=== PATIENT | female | born 1980 | race African-American/Black ===

== ENCOUNTER 2016-10-22 11:36 | Emergency (ER) | payer OTHER ==
[~2016-10-22] VITALS: Ht 149.9 cm; Wt 48.0 kg
[2016-10-22 11:58] VITALS: BP 138/87; PULSE 100; RESP 15; O2SAT 99
[2016-10-22 12:19] LABS: AUTOMATED NEUTROPHIL # 3.4 TH/MM3 (1.8-7.7); BASOPHIL # 0.1 TH/MM3 (0-0.2); EOSINOPHIL % 0.3 % (0.0-4.0); HEMATOCRIT 39.9 % (35.0-46.0); HEMO FLAGS DIFF FINAL; LYMPH % 47.8 % (9.0-44.0); LYMPHOCYTE # 3.6 TH/MM3 (1.0-4.8); MEAN CELL VOLUME 87.9 FL (80.0-100.0); MEAN CORPUSCULAR HEMOGLOBIN 30.3 PG (27.0-34.0); MEAN CORPUSCULAR HGB CONC 34.5 % (32.0-36.0); MONO % 6.2 % (0.0-8.0); NEUT % 44.7 % (16.0-70.0); PLATELET COUNT 282 TH/MM3 (150-450); RED BLOOD COUNT 4.54 MIL/MM3 (4.00-5.30); RED CELL DISTRIBUTION WIDTH 13.7 % (11.6-17.2); WHITE BLOOD COUNT 7.6 TH/MM3 (4.0-11.0)
--- NOTE | 2016-10-22 12:19 | PD ---
HPI Chief Complaint: Neuro Symptoms/ Deficits Time Seen by Provider: 12:10 Travel History International Travel<30 days: No Contact w/Intl Traveler<30days: No Traveled to known affect area: No History of Present Illness HPI 36-year-old female with a chronic history of alcohol abuse to presents to the ED for evaluation of numbness and tingling and pain to her left shoulder and arm. Per patient she drink today. Per patient the symptoms started around 9: 00. Per patient she had severe pain of her shoulder and she has numbness in her left upper arm. Per patient she denies any injury. She does smell of alcohol right now. She states that she doesn't feel anything but she also has pain in her left shoulder. She denies any injuries like this before. Patient has been here multiple times for alcohol abuse. Per patient her pain is 7 out of 10. When I ask the patient to move her arm she would not move it for me. She states that the numbness is to the entire arm. She denies any leg numbness or deformity. No neck pain. No chest pain. No shortness of breath. No headache. No blurry vision or double vision. No trauma. No allergies to medication. Pain does not radiate. PFSH Past Medical History Asthma: Yes Blood Disorders: No Cancer: No Cardiovascular Problems: No Chemotherapy: No Diminished Hearing: No Endocrine: No Genitourinary: No Musculoskeletal: No Neurologic: No Psychiatric: No Reproductive: No Respiratory: No Immunizations Current: Yes ?: Not : 0 Past Surgical History Surgical History: No Previous Surgery Other Surgery: No Social History Alcohol Use: Yes (24 pack day hx; PT DENIES) Tobacco Use: Yes (1PPD) Substance Use: No Allergies-Medications (Allergen,Severity, Reaction): Coded Allergies: No Known Allergies (Unverified , 10/22/16) Reported Meds & Prescriptions Reported Meds & Active Scripts Active No Active Prescriptions or Reported Medications Review of Systems General / Constitutional: No: Fever, Chills, Weight Gain, Weight Loss, Other Eyes: No: Diploplia, Blurred Vision, Photophobia, Drainage, Redness, Foreign Body Sensation, Pain, Tearing, Blind Spots, Visual changes, Blindness, Other HENT: No: Headaches, Vertigo, Lightheadedness, Sore Throat, Rhinitis, Rhinorrhea, Congestion, Nosebleed, Neck Stiffness, Neck Pain, Masses, Gingival Bleeding, Dental Difficulties, Ear Discharge, Earache, Other Cardiovascular: No: Chest Pain or Discomfort, Palpitations, Irregular Rhythm, Tachycardia, Diaphoresis, Syncope, Dyspnea on exertion, Varicosities, Edema, Cyanosis, Varicosities, Phlebitis, Claudication, Other Respiratory: No: Cough, Shortness of Breath, Wheezing, Sneezing, Orthopnea, Hemoptysis, Stridor, Night Sweats, Pleuritic Pain, Other Gastrointestinal: No: Nausea, Vomiting, Diarrhea, Abdominal Pain, Hematemesis, Hematochezia, Constipation, Changes in Bowel Habits, Indigestion, Dysphagia, Loss of Appetite, Other Genitourinary: No: Urgency, Frequency, Dysuria, Nocturia, Hematuria, Decreased Urinary Output, Oliguria, Hesitancy, Dribbling, Incontinence, Pelvic Pain, Flank Pain, Dyspareunia, Discharge, Dysmenorrhea, Menorrhagia, Metorrhagia, Vaginal Bleeding, Other Musculoskeletal: Positive: Limited ROM, Pain, No: Myalgias, Arthralgias, Weakness, Cramping, Edema, Atrophy, Other Skin: No Rash, No Itching, No Dryness, No Lumps, No Hives, No Change in Pigmentation, No Change in nails, No Alopecia, No Lesions, No Breast Lumps, No Breast Tenderness, No Breast Swelling, No Other Neurologic: Positive: Weakness, Paresthesia, No: Dizziness, Syncope, Focal Abnormalities, Coordination Problem, Tremor, Ataxia, Headache, Change in Mentation, Slurred Speech, Incontinence, Seizures, Sensory Disturbance, Other Psychiatric: Positive: Substance Abuse, No: Anxiety, Depression, Suicidal Ideations, Disorder of Thought, Mood Disorder, Homicidal Ideation, Other Endocrine: No: Heat Intolerance, Cold Intolerance, Polyuria, Polydipsia, Other Hematologic/Lymphatic: No: Easy Bruising, Lymph Node Enlargement, Other Physical Exam Narrative GENERAL: SKIN: Warm and dry. HEAD: Atraumatic. Normocephalic. EYES: Pupils equal and round 4 mm reactive to light and accommodation. No scleral icterus. No injection or drainage. ENT: No nasal bleeding or discharge. Mucous membranes pink and moist. Tongue is midline. No uvula deviation. NECK: Trachea midline. No JVD. CARDIOVASCULAR: Regular rate and rhythm. No murmurs, S3, S4. RESPIRATORY: No accessory muscle use. Clear to auscultation. Breath sounds equal bilaterally. GASTROINTESTINAL: Abdomen soft, non-tender, nondistended. Hepatic and splenic margins not palpable. MUSCULOSKELETAL: Extremities without clubbing, cyanosis, or edema. No obvious deformities. Full range of motion of all extremities with exception of the left upper extremity which she will not move at all. Patient cannot even make a fist. She would not move her fingers. She does have good capillary refills and 2+ pulses in the left and all extremities. No obvious lumbar, thoracic, cervical spine tenderness to palpation. Patient appears to have no sensation even to pain. NEUROLOGICAL: Awake and alert. No obvious cranial nerve deficits. Motor grossly within normal limits. Five out of 5 muscle strength in the arms and legs. Normal speech. PSYCHIATRIC: Appropriate mood and affect; insight and judgment normal. Data Data Last Documented VS Vital Signs Date Time Temp Pulse Resp B/P Pulse Ox O2 Delivery O2 Flow Rate FiO2 10/22/16 18:00 87 16 119/81 99 Room Air Orders Electrocardiogram (10/22/16 11:56) Complete Blood Count With Diff (10/22/16 11:56) Basic Metabolic Panel (Bmp) (10/22/16 11:56) Prothrombin Time / Inr (Pt) (10/22/16 11:56) Act Partial Throm Time (Ptt) (10/22/16 11:56) Urinalysis - C+S If Indicated (10/22/16 11:56) Magnesium (Mg) (10/22/16 11:56) Thyroid Stimulating Hormone (10/22/16 11:56) Ct Brain W/O Iv Contrast(Rout) (10/22/16 11:56) Iv Access Insert/Monitor (10/22/16 11:56) Ecg Monitoring (10/22/16 11:56) Oximetry (10/22/16 11:56) Drug Screen, Random Urine (10/22/16 11:56) Alcohol (Ethanol) (10/22/16 11:56) Ct Cerv Spine W/O Contrast (10/22/16 ) Shoulder, Complete (>2vws) (10/22/16 ) Ed Urine Pregnancytest Poc (10/22/16 11:56) Sodium Chlor 0.9% 1000 Ml Inj (Ns 1000 M (10/22/16 13:19) Thiamine Inj (Thiamine Inj) (10/22/16 13:30) Mri Brain W/O Contrast (10/22/16 ) Labs Laboratory Tests Test 10/22/16 10/22/16 12:00 12:52 White Blood Count 7.6 TH/MM3 Red Blood Count 4.54 MIL/MM3 Hemoglobin 13.8 GM/DL Hematocrit 39.9 % Mean Corpuscular Volume 87.9 FL Mean Corpuscular Hemoglobin 30.3 PG Mean Corpuscular Hemoglobin 34.5 % Concent Red Cell Distribution Width 13.7 % Platelet Count 282 TH/MM3 Mean Platelet Volume 10.4 FL Neutrophils (%) (Auto) 44.7 % Lymphocytes (%) (Auto) 47.8 % Monocytes (%) (Auto) 6.2 % Eosinophils (%) (Auto) 0.3 % Basophils (%) (Auto) 1.0 % Neutrophils # (Auto) 3.4 TH/MM3 Lymphocytes # (Auto) 3.6 TH/MM3 Monocytes # (Auto) 0.5 TH/MM3 Eosinophils # (Auto) 0.0 TH/MM3 Basophils # (Auto) 0.1 TH/MM3 CBC Comment DIFF FINAL Differential Comment Urine Color LIGHT-YELLOW Urine Turbidity CLEAR Urine pH 5.0 Urine Specific [place] 1.004 Urine Protein NEG mg/dL Urine Glucose (UA) NEG mg/dL Urine Ketones NEG mg/dL Urine Occult Blood NEG Urine Nitrite NEG Urine Bilirubin NEG Urine Urobilinogen LESS THAN 2.0 MG/DL Urine Leukocyte Esterase NEG Urine WBC LESS THAN 1 /hpf Urine Squamous Epithelial 1 /hpf Cells Urine Bacteria RARE /hpf Microscopic Urinalysis Comment CULT NOT INDICATED Sodium Level 143 MEQ/L Potassium Level 4.8 MEQ/L Chloride Level 110 MEQ/L Carbon Dioxide Level 22.0 MEQ/L Anion Gap 11 MEQ/L Blood Urea Nitrogen 10 MG/DL Creatinine 0.98 MG/DL Estimat Glomerular Filtration 77 ML/MIN Rate Random Glucose 73 MG/DL Calcium Level 9.7 MG/DL Magnesium Level 3.0 MG/DL Thyroid Stimulating Hormone 0.805 uIU/ML 3rd Gen Urine Opiates Screen NEG Urine Barbiturates Screen NEG Urine Amphetamines Screen NEG Urine Benzodiazepines Screen NEG Urine Cocaine Screen POS Urine Cannabinoids Screen NEG Ethyl Alcohol Level 296 MG/DL Prothrombin Time 10.8 SEC Prothromb Time International 1.0 RATIO Ratio Activated Partial 25.0 SEC Thromboplast Time MDM Medical Decision Making Medical Screen Exam Complete: Yes Emergency Medical Condition: Yes Medical Record Reviewed: Yes Interpretation(s) CBC & BMP Diagram 10/22/16 12:00 TSH within normal limits. Coags within normal limits UA negative. Tox screen positive for alcohol in the [address] 10/22/16 1156 Signed Impressions: Service Date/Time: Saturday, October 22, 2016 12:48 - CONCLUSION: No acute intracranial abnormality. Apolinar Almazan MD Shoulder X-Ray 10/22/16 0000 Signed Impressions: Service Date/Time: Saturday, October 22, 2016 12:39 - CONCLUSION: Intact left shoulder. Apolinar Almazan MD Cervical Spine CT 10/22/16 0000 Signed Impressions: Service Date/Time: Saturday, October 22, 2016 12:48 - CONCLUSION: 1. No fracture, subluxation or perceptible disc protrusion of the cervical spine. 2. Very mild uncovertebral osteoarthritis at C4/C5 and C5/C6. 3. There is no foraminal or spinal stenosis demonstrated at any level. Apolinar Almazan MD MRI was negative. Differential Diagnosis CVA versus neuropathy versus radiculopathy versus alcohol abuse versus fall versus fracture versus dislocation versus conversion disorder Narrative Course 36-year-old female that presents to the ED for evaluation of left arm numbness and pain. Patient was properly examined and was found to have signs and symptoms of unclear etiology. My attending Dr. Beavers evaluated the patient with me and evaluated her at this time with no sign any obvious deformity. Patient will not move the arm to us and would not even neck assessed so we cannot assess her strength. My attending perform a full evaluation and her as well as me and she does appear to have resistance and symptoms to be aware of her arm. Unclear this is a true [id number] this is related to her alcohol abuse versus conversion disorder. Labs and imaging were ordered. Labs and imaging were essentially unremarkable other than for alcohol in the 296. At this time patient will be allowed to sleep of her intoxication and she will be reassessed once she is more sober to better assess for the neuropathy. At this time this does not appear to be a CVA. Patient was reassessed and still states that she cannot move the arm. I did try to move her myself and again and she will not move it for me but does appear to have some muscular movements in which she seems to be able to have some control over it. Case was discussed with Dr. Live for neurology who recommends just doing MRI. If MRI is negative patient can go home. This was discussed in my attending who agrees with this. MRI was ordered. MRI was negative. At this time I do not believe the patient has any sign of CVA. This appears to be conversion disorder. She could have some radiculopathy from sleeping wrong on it but I do not believe that this is true neurological deficit. She has been asking for food and drink every time anybody goes into the room. Case was discussed extensively with my attending Dr. Landers who agrees with discharge. Patient was told to follow up with PCP. See ED for worsening symptoms. Tylenol Motrin as needed. Close follow-up with neurologist if this continues to be a problem. Patient was given a sling. Diagnosis Primary Impression: Chronic alcoholic intoxication Qualified Code: F10.120 - Chronic alcoholic intoxication, uncomplicated Additional Impression: Radiculopathy of arm Patient Instructions: General Instructions Additional Instructions: Follow with PCP. See ED worsening symptoms. Please discontinue drinking. Motrin or Tylenol for pain. Med/Other Pt SpecificInfo: Prescription(s) given Scripts No Active Prescriptions or Reported Meds Disposition: 01 DISCHARGE HOME Condition: Gerardo Scott Oct 22, 2016 12:19
[2016-10-22 12:32] LABS: POTASSIUM 4.8 MEQ/L (3.5-5.1)
[2016-10-22 13:01] LABS: AMPHETAMINE, URINE NEG (NEG); BARBITURATES, URINE NEG (NEG); COCAINE, URINE POS (NEG)
[2016-10-22 13:07] LABS: BACTERIA, URINE RARE /hpf; BLOOD, URINE NEG (NEG); COMMENT (UR) CULT NOT INDICATED; CULTURE IF INDICATED CULT NOT INDICATED; GLUCOSE,URINE NEG (NEG); KETONE, URINE NEG (NEG); NITRITE,URINE NEG (NEG); SQUAMOUS EPITHELIAL CELL URINE 1 /hpf (0-5); URINE COLOR LIGHT-YELLOW (YELLW/STRAW)
--- NOTE | 2016-10-22 13:08 | RADRPT ---
EXAM DATE/TIME: 10/22/2016 12:39 [facility] COMPARISON: No previous studies available for comparison. INDICATIONS : Left shoulder pain, fall. MEDICAL HISTORY : None. SURGICAL HISTORY : None. ENCOUNTER: Initial ACUITY: 1 day PAIN SCORE: 10/10 LOCATION: Left proximal shoulder FINDINGS: Multiple view examination of the left shoulder demonstrates no evidence of fracture or dislocation. The glenohumeral and acromioclavicular joints are maintained. There is normal range of motion betwee n internal and external rotation. Bony mineralization is normal. CONCLUSION: Intact left shoulder. Apolinar Almazan MD on October 22, 2016 at 13:06 Board Certified Radiologist. This report was verified electronically.
--- NOTE | 2016-10-22 13:12 | RADRPT ---
EXAM DATE/TIME: 10/22/2016 12:48 [facility] COMPARISON: No previous studies available for comparison. INDICATIONS : Numbness and tingling to left arm. RADIATION DOSE: 29.68 CTDIvol (mGy) MEDICAL HISTORY : None SURGICAL HISTORY : None. ENCOUNTER: Initial ACUITY: 1 day PAIN SCALE: 0/10 LOCATION: cranial TECHNIQUE: Multiple contiguous axial images were obtained of the head. Using automated exposure control and adj ustment of the mA and/or kV according to patient size, radiation dose was kept as low as reasonably a chievable to obtain optimal diagnostic quality images. FINDINGS: CEREBRUM: The ventricles are normal for age. No evidence of midline shift, mass lesion, hemorrhage or acute in farction. No extra-axial fluid collections are seen. POSTERIOR FOSSA: The cerebellum and brainstem are intact. The 4th ventricle is midline. The cerebellopontine angle i s unremarkable. EXTRACRANIAL: There is mucoperiosteal thickening causing near complete opacification of the left maxillary sinus. SKULL: The calvaria is intact. No evidence of skull fracture. CONCLUSION: No acute intracranial abnormality. Apolinar Almazan MD on October 22, 2016 at 13:10 Board Certified Radiologist. This report was verified electronically.
--- NOTE | 2016-10-22 13:15 | RADRPT ---
EXAM DATE/TIME: 10/22/2016 12:48 [facility] COMPARISON: No previous studies available for comparison. INDICATIONS : Radiculopathy. RADIATION DOSE: 12.69 CTDIvol (mGy) MEDICAL HISTORY : None SURGICAL HISTORY : None. ENCOUNTER: Initial ACUITY: 1 day PAIN SCALE: 4/10 LOCATION: Left neck TECHNIQUE: Volumetric scanning of the cervical spine was performed. Multiplanar reconstructions in the sagittal, coronal and oblique axial planes were performed. Using automated exposure control and adjustment o f the mA and/or kV according to patient size, radiation dose was kept as low as reasonably achievable to obtain optimal diagnostic quality images. FINDINGS: VERTEBRAE: Normal vertebral body height. ALIGNMENT: No evidence of subluxation. C2-C3: The bony spinal canal is normal in size. No evidence of disc bulge or herniation. The neural forami na are bilaterally patent. C3-C4: The bony spinal canal is normal in size. No evidence of disc bulge or herniation. The neural forami na are bilaterally patent. C4-C5: The bony spinal canal is normal in size. No evidence of disc bulge or herniation. Minimal uncoverteb ral degenerative changes, mainly on the left. The neural foramina are bilaterally patent. C5-C6: The bony spinal canal is normal in size. No evidence of disc bulge or herniation. Minimal uncoverteb ral degenerative changes, mainly on the left. The neural foramina are bilaterally patent. C6-C7: The bony spinal canal is normal in size. No evidence of disc bulge or herniation. The neural forami na are bilaterally patent. C7-T1: The bony spinal canal is normal in size. No evidence of disc bulge or herniation. The neural forami na are bilaterally patent. CONCLUSION: 1. No fracture, subluxation or perceptible disc protrusion of the cervical spine. 2. Very mild uncovertebral osteoarthritis at C4/C5 and C5/C6. 3. There is no foraminal or spinal stenosis demonstrated at any level. Apolinar Almazan MD on October 22, 2016 at 13:12 Board Certified Radiologist. This report was verified electronically.
[2016-10-22] MEDS ORDERED: SODIUM CHLOR 0.9% 1000 ML INJ 1,000 ML IV SCH (13:19)
--- NOTE | 2016-10-22 13:24 | EKG ---
Date Performed: 10/22/2016 Time Performed: 12:08:21 PTAGE: 36 years EKG: Sinus rhythm POSSIBLE LEFT ATRIAL ENLARGEMENT BORDERLINE LEFT AXIS DEVIATION POSSIBLE RIGHT VENTRICULAR CONDUCTIO N DELAY BORDERLINE ECG PREVIOUS TRACING : 10/13/2014 19.45 No significant change from previous tracing noted. DOCTOR: Harpal Arechiga Interpretating Date/Time 10/22/2016 13:23:16
[2016-10-22] MEDS ORDERED: THIAMINE INJ 100 MG in SODIUM CHLORIDE 0.9% INJ 100 ML IV ONE (13:30)
[2016-10-22 13:34] LABS: PROTHROMBIN TIME - PATIENT 10.8 SEC (9.8-11.6)
[2016-10-22 14:44] VITALS: BP 113/69; PULSE 70; RESP 16; O2SAT 100
[2016-10-22 15:58] VITALS: BP 110/67; PULSE 88; RESP 17; O2SAT 100
--- NOTE | 2016-10-22 17:01 | PD ---
Physical Exam Narrative I, Dr. Landers, have reviewed the advance practice practitioner's documentation and am in agreement, met with the patient face to face, made the diagnosis, and the medical decision making was done by me. *My assessment and Findings: Patient is a 36 year old female who comes in complaining of numbness to her left arm and she says he is unable to move it. She says this started around 9 this morning when she was drinking in the park with her sister this morning. Patient says she has no sensation to that arm. On exam, she refuses to move her arm, but muscle resistance can be felt when passively moving her arm. In addition, when lifting her arm above her head, she does not let it fall to her face, instead moves it above her head. When told of this finding, she then started to drop her hand on her face. Data Data Last Documented VS Vital Signs Date Time Temp Pulse Resp B/P Pulse Ox O2 Delivery O2 Flow Rate FiO2 10/22/16 18:00 87 16 119/81 99 Room Air Orders Electrocardiogram (10/22/16 11:56) Complete Blood Count With Diff (10/22/16 11:56) Basic Metabolic Panel (Bmp) (10/22/16 11:56) Prothrombin Time / Inr (Pt) (10/22/16 11:56) Act Partial Throm Time (Ptt) (10/22/16 11:56) Urinalysis - C+S If Indicated (10/22/16 11:56) Magnesium (Mg) (10/22/16 11:56) Thyroid Stimulating Hormone (10/22/16 11:56) Ct Brain W/O Iv Contrast(Rout) (10/22/16 11:56) Iv Access Insert/Monitor (10/22/16 11:56) Ecg Monitoring (10/22/16 11:56) Oximetry (10/22/16 11:56) Drug Screen, Random Urine (10/22/16 11:56) Alcohol (Ethanol) (10/22/16 11:56) Ct Cerv Spine W/O Contrast (10/22/16 ) Shoulder, Complete (>2vws) (10/22/16 ) Ed Urine Pregnancytest Poc (10/22/16 11:56) Sodium Chlor 0.9% 1000 Ml Inj (Ns 1000 M (10/22/16 13:19) Thiamine Inj (Thiamine Inj) (10/22/16 13:30) Mri Brain W/O Contrast (10/22/16 ) Splint Or Brace Apply/Monitor (10/22/16 19:06) Sling Cradle Arm (10/22/16 ) Labs Laboratory Tests Test 10/22/16 10/22/16 12:00 12:52 White Blood Count 7.6 TH/MM3 Red Blood Count 4.54 MIL/MM3 Hemoglobin 13.8 GM/DL Hematocrit 39.9 % Mean Corpuscular Volume 87.9 FL Mean Corpuscular Hemoglobin 30.3 PG Mean Corpuscular Hemoglobin 34.5 % Concent Red Cell Distribution Width 13.7 % Platelet Count 282 TH/MM3 Mean Platelet Volume 10.4 FL Neutrophils (%) (Auto) 44.7 % Lymphocytes (%) (Auto) 47.8 % Monocytes (%) (Auto) 6.2 % Eosinophils (%) (Auto) 0.3 % Basophils (%) (Auto) 1.0 % Neutrophils # (Auto) 3.4 TH/MM3 Lymphocytes # (Auto) 3.6 TH/MM3 Monocytes # (Auto) 0.5 TH/MM3 Eosinophils # (Auto) 0.0 TH/MM3 Basophils # (Auto) 0.1 TH/MM3 CBC Comment DIFF FINAL Differential Comment Urine Color LIGHT-YELLOW Urine Turbidity CLEAR Urine pH 5.0 Urine Specific [place] 1.004 Urine Protein NEG mg/dL Urine Glucose (UA) NEG mg/dL Urine Ketones NEG mg/dL Urine Occult Blood NEG Urine Nitrite NEG Urine Bilirubin NEG Urine Urobilinogen LESS THAN 2.0 MG/DL Urine Leukocyte Esterase NEG Urine WBC LESS THAN 1 /hpf Urine Squamous Epithelial 1 /hpf Cells Urine Bacteria RARE /hpf Microscopic Urinalysis Comment CULT NOT INDICATED Sodium Level 143 MEQ/L Potassium Level 4.8 MEQ/L Chloride Level 110 MEQ/L Carbon Dioxide Level 22.0 MEQ/L Anion Gap 11 MEQ/L Blood Urea Nitrogen 10 MG/DL Creatinine 0.98 MG/DL Estimat Glomerular Filtration 77 ML/MIN Rate Random Glucose 73 MG/DL Calcium Level 9.7 MG/DL Magnesium Level 3.0 MG/DL Thyroid Stimulating Hormone 0.805 uIU/ML 3rd Gen Urine Opiates Screen NEG Urine Barbiturates Screen NEG Urine Amphetamines Screen NEG Urine Benzodiazepines Screen NEG Urine Cocaine Screen POS Urine Cannabinoids Screen NEG Ethyl Alcohol Level 296 MG/DL Prothrombin Time 10.8 SEC Prothromb Time International 1.0 RATIO Ratio Activated Partial 25.0 SEC Thromboplast Time MDM Supervised Visit with PHAN: Yes Narrative Course Patient found to have an alcohol level of 296. CT head is negative. Patient allowed to sober up. She continues to complain of the numbness and being unable to move her arm. Spoke to Dr. Melvin of neurology who advises MRI and discharge if normal. MRI showed no acute abnormalities. Patient observed to be using her arm normally. Discharged home. Diagnosis Primary Impression: Chronic alcoholic intoxication Qualified Code: F10.120 - Chronic alcoholic intoxication, uncomplicated Scripts No Active Prescriptions or Reported Meds Rabia Landers MD Oct 22, 2016 17:01
[2016-10-22 18:00] VITALS: BP 119/81; PULSE 87; RESP 16; O2SAT 99
--- NOTE | 2016-10-22 18:47 | RADRPT ---
EXAM DATE/TIME: 10/22/2016 18:16 [facility] COMPARISON: No previous studies available for comparison. INDICATIONS : Left upper extremity numbness. MEDICAL HISTORY : Polysubstance abuse. SURGICAL HISTORY : None. ENCOUNTER: Initial ACUITY: 1 day PAIN SCORE: 0/10 LOCATION: cranial TECHNIQUE: Multiplanar, multisequence MRI of the brain was performed without contrast. FINDINGS: CEREBRUM: The ventricles are normal for age. No evidence of midline shift, mass lesion, hemorrhage or acute in farction. No extraaxial fluid collections are seen. The pituitary gland and suprasellar cistern are normal in configuration. WHITE MATTER: No significant signal abnormalities are seen in the white matter. POSTERIOR FOSSA: The cerebellum and brainstem are intact. The 4th ventricle is midline. The cerebellopontine angle is unremarkable. The cerebellar tonsils are normal in position. DIFFUSION IMAGING: No focal areas of restricted diffusion are seen. No evidence of acute infarction. EXTRACRANIAL: The visualized portions of the orbits are unremarkable. Partial opacification left maxillary sinus. CONCLUSION: 1. No acute intracranial abnormality. 2. Left maxillary sinus disease. Quoc Bassett MD on October 22, 2016 at 18:44 Board Certified Radiologist. This report was verified electronically.
== END 2016-10-22 19:30 | disposition home or self-care (01) ==
LOC: NEPE 11:36
DX: F10.120 Alcohol abuse with intoxication, uncomplicated (principal); R20.0 Anesthesia of skin; R20.2 Paresthesia of skin; J45.909 Unspecified asthma, uncomplicated; F17.210 Nicotine dependence, cigarettes, uncomplicated; R94.31 Abnormal electrocardiogram [ECG] [EKG]
CPT/HCPCS: 70450; 70551; 72125; 73030; 80048; 80307; 80320; 81001; 83735; 84443; 84703; 85025; 85610; 85730; 93005; 96365; 99284; J3411; J7030

== ENCOUNTER 2016-10-31 07:46 | Emergency (ER) | payer OTHER ==
[2016-10-31 07:47] VITALS: BP 112/79; PULSE 97; RESP 20; TEMP 98.1; O2SAT 99
[2016-10-31 10:16] VITALS: BP 131/94; PULSE 91; RESP 16; O2SAT 99
[2016-10-31 10:58] VITALS: O2SAT 100
--- NOTE | 2016-10-31 10:59 | PD ---
HPI Chief Complaint: Respiratory Symptoms Time Seen by Provider: 10:51 Travel History International Travel<30 days: No Contact w/Intl Traveler<30days: No Traveled to known affect area: No History of Present Illness HPI 36yo F with PMH of asthma, chronic alcohol abuse presents to the ED with c/o sob since yesterday. States she was wheezing, but ran out of her pump. Had chest tightness that is midsternal as well. Denies any fever, cough, cocaine or drug use, n/v, abdominal pain, focal weakness or numbness. Denies any fall. PFSH Past Medical History Asthma: Yes Blood Disorders: No Cancer: No Cardiovascular Problems: No Chemotherapy: No Diminished Hearing: No Endocrine: No Genitourinary: No Musculoskeletal: No Neurologic: No Psychiatric: No Reproductive: No Respiratory: No Immunizations Current: Yes Tetanus Vaccination: < 5 Years Influenza Vaccination: No ?: Not : 0 Past Surgical History Surgical History: No Previous Surgery Other Surgery: No Social History Alcohol Use: Yes (24 pack day hx; PT STATES SHE DRANK BEER THIS MORNING) Tobacco Use: Yes (1/2PPD) Substance Use: No Allergies-Medications (Allergen,Severity, Reaction): Coded Allergies: No Known Allergies (Unverified , 10/22/16) Reported Meds & Prescriptions Reported Meds & Active Scripts Active Ventolin Hfa 18 GM Inh (Albuterol Sulfate) 90 Mcg/Act Aer 2 Puff INH Q4H PRN Prednisone 20 Mg Tab 20 Mg PO BID 5 Days Review of Systems Except as stated in HPI: all other systems reviewed are Neg Physical Exam Narrative GENERAL: 36yo F not in distress. SKIN: Warm and dry. HEAD: Atraumatic. Normocephalic. NECK: Trachea midline. No JVD. CARDIOVASCULAR: Regular rate and rhythm. No murmur appreciated. RESPIRATORY: No accessory muscle use. Clear to auscultation. Breath sounds equal bilaterally. GASTROINTESTINAL: Abdomen soft, non-tender, nondistended. MUSCULOSKELETAL: No obvious deformities. No clubbing. No cyanosis. No edema. NEUROLOGICAL: Awake and alert. No obvious cranial nerve deficits. Motor grossly within normal limits. Normal speech. PSYCHIATRIC: Appropriate mood and affect; insight and judgment normal. Data Data Last Documented VS Vital Signs Date Time Temp Pulse Resp B/P Pulse Ox O2 Delivery O2 Flow Rate FiO2 10/31/16 16:36 82 16 116/80 97 10/31/16 10:58 Room Air 10/31/16 07:47 98.1 Orders Electrocardiogram (10/31/16 ) Complete Blood Count With Diff (10/31/16 10:55) Basic Metabolic Panel (Bmp) (10/31/16 10:55) Act Partial Throm Time (Ptt) (10/31/16 10:55) Prothrombin Time / Inr (Pt) (10/31/16 10:55) Ckmb (Isoenzyme) Profile (10/31/16 10:55) Troponin I (10/31/16 10:55) Ecg Monitoring (10/31/16 10:55) Oximetry (10/31/16 10:55) Chest, Single Ap (10/31/16 10:55) Albuterol-Ipratropium Neb (Duoneb Neb) (10/31/16 11:00) Prednisone (Deltasone) (10/31/16 11:00) CKMB (10/31/16 11:02) CKMB% (10/31/16 11:02) Labs Laboratory Tests Test 10/31/16 11:02 White Blood Count 7.5 TH/MM3 Red Blood Count 4.52 MIL/MM3 Hemoglobin 13.4 GM/DL Hematocrit 39.6 % Mean Corpuscular Volume 87.6 FL Mean Corpuscular Hemoglobin 29.7 PG Mean Corpuscular Hemoglobin 33.9 % Concent Red Cell Distribution Width 13.7 % Platelet Count 227 TH/MM3 Mean Platelet Volume 10.3 FL Neutrophils (%) (Auto) 47.4 % Lymphocytes (%) (Auto) 46.1 % Monocytes (%) (Auto) 5.6 % Eosinophils (%) (Auto) 0.6 % Basophils (%) (Auto) 0.3 % Neutrophils # (Auto) 3.6 TH/MM3 Lymphocytes # (Auto) 3.5 TH/MM3 Monocytes # (Auto) 0.4 TH/MM3 Eosinophils # (Auto) 0.0 TH/MM3 Basophils # (Auto) 0.0 TH/MM3 CBC Comment DIFF FINAL Differential Comment Prothrombin Time 10.7 SEC Prothromb Time International 1.0 RATIO Ratio Activated Partial 26.6 SEC Thromboplast Time Sodium Level 145 MEQ/L Potassium Level 4.1 MEQ/L Chloride Level 111 MEQ/L Carbon Dioxide Level 26.5 MEQ/L Anion Gap 8 MEQ/L Blood Urea Nitrogen 9 MG/DL Creatinine 0.94 MG/DL Estimat Glomerular Filtration 81 ML/MIN Rate Random Glucose 92 MG/DL Calcium Level 8.6 MG/DL Total Creatine Kinase 755 U/L Creatine Kinase MB 1.1 NG/ML Creatine Kinase MB % 0.1 % Troponin I LESS THAN 0.02 NG/ML MDM Medical Decision Making Medical Screen Exam Complete: Yes Emergency Medical Condition: Yes Interpretation(s) EKG: NSR 89bpm. LAD. No ST segment elevation or depression. Differential Diagnosis Asthma exacerbation vs. pneumonia vs. malingering Narrative Course 36yo F with chronic alcohol abuse and asthma states she is sob and out of her asthma medication. Pt is not wheezing but states she has sob so will give duonebs x 3 and prednisone 60mg PO. Pt is speaking in complete sentences and has been sleeping comfortable in the ED. Labs reviewed, no leukocytosis. Troponin negative. CPK elevated at 755. Pt tolerating PO. Normal creatinine. CXR negative. VS normal. Pt reevaluated at bedside and states she feels better. Pt is well appearing and has been comfortable. Although pt may not be wheezing, she states she has history of asthma so will prescribe prednisone and ventolin. Return precautions given. Diagnosis Primary Impression: Asthma exacerbation Patient Instructions: General Instructions Departure Forms: Tests/Procedures Additional Instructions: Please follow up with PMD in 3-7 days. Return to the ED if symptoms worsen. Med/Other Pt SpecificInfo: Prescription(s) given Scripts Albuterol 18 GM Inh (Ventolin Hfa 18 GM Inh)90 Mcg/Act Aer2 Puff INH Q4H PRN ( SHORTNESS OF BREATH) #1 INHALER Ref 0 Prov:MarinaElsi 10/31/16 Prednisone 20 Mg Tab20 Mg PO BID 5 Days Ref 0 Prov:Elsi Gray DO 10/31/16 Disposition: 01 DISCHARGE HOME Condition: Stable Elsi Gray Oct 31, 2016 10:59
[2016-10-31] MEDS ORDERED: predniSONE 20 MG TAB PO ONE (11:00)
[2016-10-31 11:10] LABS: AUTOMATED NEUTROPHIL # 3.6 TH/MM3 (1.8-7.7); BASOPHIL % 0.3 % (0.0-2.0); EOSINOPHIL % 0.6 % (0.0-4.0); HEMATOCRIT 39.6 % (35.0-46.0); HEMO FLAGS DIFF FINAL; LYMPH % 46.1 % (9.0-44.0); LYMPHOCYTE # 3.5 TH/MM3 (1.0-4.8); MEAN CELL VOLUME 87.6 FL (80.0-100.0); MEAN CORPUSCULAR HEMOGLOBIN 29.7 PG (27.0-34.0); MEAN CORPUSCULAR HGB CONC 33.9 % (32.0-36.0); MONO % 5.6 % (0.0-8.0); NEUT % 47.4 % (16.0-70.0); PLATELET COUNT 227 TH/MM3 (150-450); RED BLOOD COUNT 4.52 MIL/MM3 (4.00-5.30); RED CELL DISTRIBUTION WIDTH 13.7 % (11.6-17.2); WHITE BLOOD COUNT 7.5 TH/MM3 (4.0-11.0)
[2016-10-31] MEDS: RESP: ALBUTEROL 2.5 MG/IPRATROPIUM 0.5 MG NEB (SCH) INH ×2 (11:11→11:12)
[2016-10-31 11:18] LABS: APTT (PATIENT) 26.6 SEC (24.3-30.1); PROTHROMBIN TIME - PATIENT 10.7 SEC (9.8-11.6)
[2016-10-31 11:26] LABS: ANION GAP 8 MEQ/L (5-15); BICARBONATE 26.5 MEQ/L (21.0-32.0); BLOOD UREA NITROGEN 9 MG/DL (7-18); CHLORIDE 111 MEQ/L (98-107); GLOMERULAR FILTRATION RATE 81 ML/MIN (>89); POTASSIUM 4.1 MEQ/L (3.5-5.1); SODIUM (NA) 145 MEQ/L (136-145)
[2016-10-31 11:30] VITALS: BP 127/74; PULSE 100; RESP 16; O2SAT 100
[2016-10-31 11:30] LABS: CREATINE KINASE 755 U/L (26-192)
--- NOTE | 2016-10-31 11:36 | RADRPT ---
EXAM DATE/TIME: 10/31/2016 11:01 [facility] COMPARISON: CHEST SINGLE AP, October 13, 2014, 0:58. INDICATIONS : Short of breath, chest pain. MEDICAL HISTORY : None. SURGICAL HISTORY : None. ENCOUNTER: Initial ACUITY: 1 day PAIN SCORE: 10/10 LOCATION: Bilateral chest FINDINGS: A single view of the chest demonstrates the lungs to be symmetrically aerated without evidence of mas s, infiltrate or effusion. The cardiomediastinal contours are unremarkable. Osseous structures are intact. CONCLUSION: No acute disease. Quoc Bassett MD on October 31, 2016 at 11:34 Board Certified Radiologist. This report was verified electronically.
[2016-10-31 11:43] LABS: CKMB 1.1 NG/ML (0.5-3.6)
[2016-10-31 13:05] VITALS: BP 123/76; PULSE 85; RESP 16; O2SAT 99
[2016-10-31] MEDS ORDERED: PRED20 PO (13:39)
[2016-10-31] MEDS ORDERED: VENTAER INH (13:39)
--- NOTE | 2016-10-31 15:17 | EKG ---
Date Performed: 10/31/2016 Time Performed: 10:22:09 PTAGE: 36 years EKG: Sinus rhythm LEFT AXIS DEVIATION ABNORMAL ECG PREVIOUS TRACING : 10/22/2016 12.08 No significant change from previous tracing noted. DOCTOR: Harpal Arechiga Interpretating Date/Time 10/31/2016 15:16:03
[2016-10-31 16:36] VITALS: BP 116/80
== END 2016-10-31 16:36 | disposition home or self-care (01) ==
LOC: NEPE 07:46
DX: J45.901 Unspecified asthma with (acute) exacerbation (principal); F10.10 Alcohol abuse, uncomplicated; F17.210 Nicotine dependence, cigarettes, uncomplicated; R94.31 Abnormal electrocardiogram [ECG] [EKG]
CPT/HCPCS: 71010; 80048; 82550; 82552; 84484; 85025; 85610; 85730; 93005; 94640; 94664; 99284; J7512

== ENCOUNTER 2016-12-17 10:27 | Emergency (ER) | payer OTHER ==
[~2016-12-17] VITALS: Ht 157.5 cm; Wt 50.0 kg
[~2016-12-17 10:27] MED LIST: PRED20 PO; VENTAER INH
[2016-12-17 10:33] VITALS: BP 139/86; PULSE 115; RESP 18; TEMP 98; O2SAT 96
[2016-12-17] MEDS ORDERED: SODIUM CHLOR 0.9% 1000 ML INJ 1,000 ML IV ONE (10:45)
[2016-12-17 10:59] LABS: AUTOMATED NEUTROPHIL # 2.5 TH/MM3 (1.8-7.7); BASOPHIL % 0.7 % (0.0-2.0); EOSINOPHIL % 0.5 % (0.0-4.0); HEMO FLAGS DIFF FINAL; LYMPH % 47.2 % (9.0-44.0); LYMPHOCYTE # 2.8 TH/MM3 (1.0-4.8); MEAN CORPUSCULAR HEMOGLOBIN 29.5 PG (27.0-34.0); MEAN CORPUSCULAR HGB CONC 34.3 % (32.0-36.0); MONO % 10.3 % (0.0-8.0); NEUT % 41.3 % (16.0-70.0); PLATELET COUNT 221 TH/MM3 (150-450); RED CELL DISTRIBUTION WIDTH 14.1 % (11.6-17.2)
[2016-12-17 11:40] LABS: ALT (GPT) 23 U/L (10-53); ANION GAP 10 MEQ/L (5-15); AST (GOT) 27 U/L (15-37); BICARBONATE 22.2 MEQ/L (21.0-32.0); BLOOD UREA NITROGEN 13 MG/DL (7-18); CHLORIDE 109 MEQ/L (98-107); GLOMERULAR FILTRATION RATE 73 ML/MIN (>89); POTASSIUM 3.8 MEQ/L (3.5-5.1); SODIUM (NA) 141 MEQ/L (136-145)
[2016-12-17 11:44] LABS: ALKALINE PHOSPHATASE 72 U/L (45-117); TOTAL BILIRUBIN ADULT 0.5 MG/DL (0.2-1.0)
[2016-12-17 12:00] VITALS: BP 109/56; PULSE 78; RESP 16; O2SAT 100
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
--- NOTE | 2016-12-17 15:19 | EKG ---
Date Performed: 12/17/2016 Time Performed: 10:47:04 PTAGE: 36 years EKG: SINUS TACHYCARDIA POSSIBLE RIGHT VENTRICULAR CONDUCTION DELAY LEFT ANTERIOR FASCICULAR BLOC K ABNORMAL ECG PREVIOUS TRACING : 10/31/2016 10.22 Since previous tracing, no significant change noted DOCTOR: Brandon Rick Interpretating Date/Time 12/17/2016 15:17:41
[2016-12-17 19:26] VITALS: BP 129/82; TEMP 98.2
== END 2016-12-17 19:40 | disposition home or self-care (01) ==
LOC: NEPE 10:27
DX: F10.120 Alcohol abuse with intoxication, uncomplicated (principal); R00.0 Tachycardia, unspecified; Y90.8 Blood alcohol level of 240 mg/100 ml or more
CPT/HCPCS: 80053; 80307; 85025; 93005; 96360; 99285; J7030

== ENCOUNTER 2017-01-06 04:18 | Emergency (ER) | payer OTHER ==
[~2017-01-06] VITALS: Ht 149.9 cm; Wt 39.0 kg
[2017-01-06 04:18] VITALS: BP 136/82; PULSE 106; RESP 16
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
[2017-01-06] MEDS ORDERED: ACETAMINOPHEN 325 MG TAB PO ONE (05:15)
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
[2017-01-06 06:40] VITALS: BP 135/77
== END 2017-01-06 06:35 | disposition home or self-care (01) ==
LOC: NEPE 04:18
DX: S09.90XA Unspecified injury of head, initial encounter (principal); S00.211A Abrasion of right eyelid and periocular area, initial encounter; S16.1XXA Strain of muscle, fascia and tendon at neck level, initial encounter; F17.210 Nicotine dependence, cigarettes, uncomplicated; W22.09XA Striking against other stationary object, initial encounter; Y93.02 Activity, running
CPT/HCPCS: 70450; 72125

== ENCOUNTER 2017-02-16 09:18 | Emergency (ER) | payer OTHER ==
[~2017-02-16] VITALS: Ht 160 cm; Wt 50.0 kg
[2017-02-16 09:31] VITALS: BP 103/74; PULSE 102; RESP 16; TEMP 98.3; O2SAT 96
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
== END 2017-02-16 09:53 | disposition home or self-care (01) ==
LOC: NEPD 09:18
DX: M79.674 Pain in right toe(s) (principal)
CPT/HCPCS: 99283

== ENCOUNTER 2017-04-11 07:19 | Emergency (ER) | payer OTHER ==
[~2017-04-11] VITALS: Ht 157.5 cm; Wt 46.0 kg
[2017-04-11 07:25] VITALS: BP 124/85; PULSE 97; RESP 12; TEMP 98.5; O2SAT 99
[2017-04-11] MEDS ORDERED: SODIUM CHLOR 0.9% 1000 ML INJ 1,000 ML IV ONE (07:45)
--- NOTE | 2017-04-11 09:06 | PD ---
HPI Chief Complaint: General Weakness Time Seen by Provider: 07:37 Travel History International Travel<30 days: No Contact w/Intl Traveler<30days: No Traveled to known affect area: No History of Present Illness HPI This is a 36-year-old female with a history of alcohol abuse, presents today with complaints of generalized weakness. The patient states that she was walking from her mother's house when she became very weak. Apparently she was outside the hospital and was noted by nurses to be stumbling. She apparently was helped down to the ground and [facility] was called. She denies any pain. She states that she's tired and weak. She does report that she drank too beers last night. There are no other complaints time my examination. PFSH Past Medical History Asthma: Yes Blood Disorders: No Cancer: No Cardiovascular Problems: No Chemotherapy: No Diminished Hearing: No Endocrine: No Genitourinary: No Musculoskeletal: No Neurologic: No Psychiatric: No Reproductive: No Respiratory: No Immunizations Current: Yes ?: Unknown : 0 Past Surgical History Other Surgery: No Social History Alcohol Use: Yes (24 pack day hx) Tobacco Use: Yes (1/2PPD) Substance Use: No Allergies-Medications (Allergen,Severity, Reaction): Coded Allergies: No Known Allergies (Unverified , 04/11/17) Reported Meds & Prescriptions Reported Meds & Active Scripts Active Review of Systems Except as stated in HPI: all other systems reviewed are Neg General / Constitutional: No: Fever, Chills HENT: No: Headaches, Lightheadedness, Neck Stiffness Cardiovascular: No: Chest Pain or Discomfort, Palpitations Respiratory: No: Cough, Shortness of Breath Gastrointestinal: No: Nausea, Vomiting, Abdominal Pain Genitourinary: No: Frequency, Dysuria Musculoskeletal: Positive: Weakness (generalized), No: Pain Neurologic: Positive: Weakness (and realized), No: Dizziness, Headache, Change in Mentation, Slurred Speech Physical Exam Narrative GENERAL: Thin weak appearing female in no acute respiratory distress. SKIN: Focused skin assessment warm/dry. HEAD: Normocephalic/atraumatic. EYES: No scleral icterus. No injection or drainage. NECK: Supple, trachea midline. CARDIOVASCULAR: Heart rate 100 and normal rhythm without murmurs, gallops, or rubs. RESPIRATORY: Breath sounds equal bilaterally. No accessory muscle use. GASTROINTESTINAL: Abdomen soft, non-tender, nondistended. MUSCULOSKELETAL: No cyanosis, or edema. NEUROLOGICAL: Awake and weak appearing. Cranial nerves II through XII intact. Motor and sensory grossly within normal limits. Five out of 5 muscle strength in all muscle groups. Normal speech. Data Data Last Documented VS Vital Signs Date Time Temp Pulse Resp B/P Pulse Ox O2 Delivery O2 Flow Rate FiO2 04/11/17 07:25 98.5 97 12 124/85 99 Orders Electrocardiogram (04/11/17 07:38) Complete Blood Count With Diff (04/11/17 07:38) Comprehensive Metabolic Panel (04/11/17 07:38) Lipase (04/11/17 07:38) Urinalysis - C+S If Indicated (04/11/17 07:38) Magnesium (Mg) (04/11/17 07:38) Chest, Single Ap (04/11/17 07:38) Iv Access Insert/Monitor (04/11/17 07:38) Ecg Monitoring (04/11/17 07:38) Oximetry (04/11/17 07:38) Ed Urine Pregnancytest Poc (04/11/17 07:38) Drug Screen, Random Urine (04/11/17 07:38) Alcohol (Ethanol) (04/11/17 07:38) Sodium Chlor 0.9% 1000 Ml Inj (Ns 1000 M (04/11/17 07:45) Ketorolac Inj (Toradol Inj) (04/11/17 09:30) Diet Regular Basic (04/11/17 Breakfast) Labs Laboratory Tests Test 04/11/17 04/11/17 08:13 08:35 Urine Color LIGHT-YELLOW Urine Turbidity CLEAR Urine pH 5.5 Urine Specific [place] 1.009 Urine Protein TRACE mg/dL Urine Glucose (UA) NEG mg/dL Urine Ketones NEG mg/dL Urine Occult Blood NEG Urine Nitrite NEG Urine Bilirubin NEG Urine Urobilinogen LESS THAN 2.0 MG/DL Urine Leukocyte Esterase NEG Urine WBC LESS THAN 1 /hpf Microscopic Urinalysis Comment CULT NOT INDICATED Urine Opiates Screen NEG Urine Barbiturates Screen NEG Urine Amphetamines Screen NEG Urine Benzodiazepines Screen NEG Urine Cocaine Screen POS Urine Cannabinoids Screen NEG White Blood Count 4.8 TH/MM3 Red Blood Count 3.91 MIL/MM3 Hemoglobin 11.9 GM/DL Hematocrit 34.3 % Mean Corpuscular Volume 87.5 FL Mean Corpuscular Hemoglobin 30.3 PG Mean Corpuscular Hemoglobin 34.6 % Concent Red Cell Distribution Width 13.6 % Platelet Count 189 TH/MM3 Mean Platelet Volume 10.8 FL Neutrophils (%) (Auto) 50.8 % Lymphocytes (%) (Auto) 40.6 % Monocytes (%) (Auto) 7.9 % Eosinophils (%) (Auto) 0.1 % Basophils (%) (Auto) 0.6 % Neutrophils # (Auto) 2.5 TH/MM3 Lymphocytes # (Auto) 2.0 TH/MM3 Monocytes # (Auto) 0.4 TH/MM3 Eosinophils # (Auto) 0.0 TH/MM3 Basophils # (Auto) 0.0 TH/MM3 CBC Comment DIFF FINAL Differential Comment Sodium Level 143 MEQ/L Potassium Level 3.8 MEQ/L Chloride Level 112 MEQ/L Carbon Dioxide Level 24.8 MEQ/L Anion Gap 6 MEQ/L Blood Urea Nitrogen 7 MG/DL Creatinine 1.12 MG/DL Estimat Glomerular Filtration 66 ML/MIN Rate Random Glucose 74 MG/DL Calcium Level 8.5 MG/DL Magnesium Level 2.3 MG/DL Total Bilirubin 0.7 MG/DL Aspartate Amino Transf 20 U/L (AST/SGOT) Alanine Aminotransferase 26 U/L (ALT/SGPT) Alkaline Phosphatase 66 U/L Total Protein 8.2 GM/DL Albumin 4.3 GM/DL Lipase 122 U/L Ethyl Alcohol Level 182 MG/DL MDM Medical Decision Making Medical Screen Exam Complete: Yes Emergency Medical Condition: Yes Differential Diagnosis Dehydration versus intoxication versus metabolic derangement. Narrative Course 1 year-old female presents with generalized weakness. The patient was found outside the hospital and had a near syncopal episode. The patient has an alcohol level of 182. She states she had 2 beers last night. Patient also has cocaine in her system. She is now requesting food. She also now states that she has low back pain. She states she has a history of low back pain. She's been given one dose of 39 g IM Toradol. She'll be discharged told to stop taking alcohol and stop using cocaine. Her creatinine was slightly elevated at 1.12. She'll be told to drink plenty of fluids. She also instructed to follow up with a primary care physician of her choice. Diagnosis Primary Impression: Alcohol intoxication Additional Impressions: Substance abuse Acute kidney injury Additional Instructions: Stop using drugs and alcohol. Follow up with a primary care physician for recheck of your kidney function. Drink plenty of fluids. Scripts Unable to Obtain Active Prescriptions or Reported Meds Disposition: 01 DISCHARGE HOME Condition: Stable John Haq MD Apr 11, 2017 09:06
--- NOTE | 2017-04-11 09:10 | RADRPT ---
EXAM DATE/TIME: 04/11/2017 07:46 [facility] COMPARISON: CHEST SINGLE AP, October 13, 2014, 0:58. CHEST SINGLE AP, October 31, 2016, 11:01. INDICATIONS : Shortness of breath. MEDICAL HISTORY : None. SURGICAL HISTORY : None. ENCOUNTER: Initial ACUITY: 1 day PAIN SCORE: 0/10 LOCATION: Bilateral chest FINDINGS: A single portable frontal view of the chest shows a 7 mm nodular density projecting over the left wale g base. The lungs are hyperinflated bilaterally. No infiltrate or effusion. No pneumothorax. Heart is mildly enlarged but stable. Bony structures are unremarkable. CONCLUSION: 1. Hyperinflation suggesting COPD. 2. 7 mm nodule identity projecting over the left lung base. His may simply relate to a nipple shadow, however, I cannot exclude a pulmonary nodule at this time. Consideration could be made to PA and lat eral views of the chest with nipple markers. 3. Mild cardiomegaly. Seth Bond Jr., MD on April 11, 2017 at 9:06 Board Certified Radiologist. This report was verified electronically.
[2017-04-11 09:30] LABS: BLOOD, URINE NEG (NEG); GLUCOSE,URINE NEG (NEG); KETONE, URINE NEG (NEG); NITRITE,URINE NEG (NEG); PH, URINE 5.5 (5.0-8.5); URINE COLOR LIGHT-YELLOW (YELLW/STRAW)
[2017-04-11] MEDS ORDERED: KETOROLAC TROMETHAMINE 60 MG/2 ML (IM) VIAL IM ONE (09:30)
[2017-04-11 09:33] LABS: COMMENT (UR) CULT NOT INDICATED; CULTURE IF INDICATED CULT NOT INDICATED
[2017-04-11 09:36] LABS: AUTOMATED NEUTROPHIL # 2.5 TH/MM3 (1.8-7.7); BASOPHIL % 0.6 % (0.0-2.0); EOSINOPHIL % 0.1 % (0.0-4.0); HEMATOCRIT 34.3 % (35.0-46.0); HEMO FLAGS DIFF FINAL; LYMPH % 40.6 % (9.0-44.0); MEAN CELL VOLUME 87.5 FL (80.0-100.0); MEAN CORPUSCULAR HEMOGLOBIN 30.3 PG (27.0-34.0); MEAN CORPUSCULAR HGB CONC 34.6 % (32.0-36.0); MONO % 7.9 % (0.0-8.0); NEUT % 50.8 % (16.0-70.0); PLATELET COUNT 189 TH/MM3 (150-450); RED BLOOD COUNT 3.91 MIL/MM3 (4.00-5.30); RED CELL DISTRIBUTION WIDTH 13.6 % (11.6-17.2); WHITE BLOOD COUNT 4.8 TH/MM3 (4.0-11.0)
[2017-04-11 09:54] LABS: ANION GAP 6 MEQ/L (5-15); AST (GOT) 20 U/L (15-37); BICARBONATE 24.8 MEQ/L (21.0-32.0); BLOOD UREA NITROGEN 7 MG/DL (7-18); CHLORIDE 112 MEQ/L (98-107); GLOMERULAR FILTRATION RATE 66 ML/MIN (>89); MAGNESIUM 2.3 MG/DL (1.5-2.5); POTASSIUM 3.8 MEQ/L (3.5-5.1); SODIUM (NA) 143 MEQ/L (136-145)
[2017-04-11 09:55] LABS: ALT (GPT) 26 U/L (10-53)
[2017-04-11 09:58] LABS: ALCOHOL 182 MG/DL (0-5); ALKALINE PHOSPHATASE 66 U/L (45-117); TOTAL BILIRUBIN ADULT 0.7 MG/DL (0.2-1.0)
[2017-04-11 10:48] VITALS: BP 121/87; PULSE 91; RESP 14; O2SAT 98
[2017-04-11 12:15] VITALS: BP 119/81; PULSE 89; RESP 16; O2SAT 99
--- NOTE | 2017-04-11 14:44 | EKG ---
Date Performed: 04/11/2017 Time Performed: 08:28:18 PTAGE: 36 years EKG: Sinus rhythm LEFT ATRIAL ENLARGEMENT POSSIBLE RIGHT VENTRICULAR CONDUCTION DELAY PROBABLE SEPTAL MYOCARDIAL INFAR CTION ABNORMAL ECG PREVIOUS TRACING : 12/17/2016 10.47 Compared to prior tracing no significant change DOCTOR: Zackery Smith Interpretating Date/Time 04/11/2017 14:43:45
== END 2017-04-11 13:47 | disposition home or self-care (01) ==
LOC: NEPC 07:19 → NEDAMB 13:47
DX: F10.929 Alcohol use, unspecified with intoxication, unspecified (principal); F19.10 Other psychoactive substance abuse, uncomplicated; N17.9 Acute kidney failure, unspecified; R94.31 Abnormal electrocardiogram [ECG] [EKG]; R55 Syncope and collapse; M54.5 Low back pain; R53.1 Weakness; R53.83 Other fatigue; F17.200 Nicotine dependence, unspecified, uncomplicated; Z87.09 Personal history of other diseases of the respiratory system
CPT/HCPCS: 71010; 80053; 80307; 81001; 83690; 83735; 84703; 85025; 93005; 96360; 96372; 99285; J1885; J7030

== ENCOUNTER 2017-07-18 21:53 | Emergency (ER) | payer OTHER ==
[~2017-07-18] VITALS: Ht 147.3 cm; Wt 45.0 kg
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
[2017-07-18 22:41] LABS: AUTOMATED NEUTROPHIL # 4.6 TH/MM3 (1.8-7.7); BASOPHIL % 0.5 % (0.0-2.0); EOSINOPHIL # 0.1 TH/MM3 (0-0.4); EOSINOPHIL % 0.6 % (0.0-4.0); HEMATOCRIT 37.5 % (35.0-46.0); HEMO FLAGS DIFF FINAL; LYMPHOCYTE # 3.8 TH/MM3 (1.0-4.8); MEAN CELL VOLUME 88.1 FL (80.0-100.0); MEAN CORPUSCULAR HEMOGLOBIN 31.4 PG (27.0-34.0); MEAN CORPUSCULAR HGB CONC 35.6 % (32.0-36.0); MONO % 5.1 % (0.0-8.0); NEUT % 51.8 % (16.0-70.0); PLATELET COUNT 230 TH/MM3 (150-450); RED BLOOD COUNT 4.25 MIL/MM3 (4.00-5.30); RED CELL DISTRIBUTION WIDTH 12.8 % (11.6-17.2)
[2017-07-18 23:00] LABS: ALT (GPT) 25 U/L (10-53); ANION GAP 10 MEQ/L (5-15); AST (GOT) 20 U/L (15-37); BICARBONATE 24.8 MEQ/L (21.0-32.0); BLOOD UREA NITROGEN 9 MG/DL (7-18); CHLORIDE 109 MEQ/L (98-107); GLOMERULAR FILTRATION RATE 63 ML/MIN (>89); POTASSIUM 3.6 MEQ/L (3.5-5.1); SODIUM (NA) 144 MEQ/L (136-145)
[2017-07-18 23:02] LABS: ALKALINE PHOSPHATASE 84 U/L (45-117); TOTAL BILIRUBIN ADULT 0.8 MG/DL (0.2-1.0)
[2017-07-18 23:05] LABS: ACETAMINOPHEN LESS THAN 2.0 MCG/ML (10.0-30.0); ALCOHOL 251 MG/DL (0-5)
[2017-07-19 00:59] VITALS: BP 121/74; PULSE 81; RESP 20; O2SAT 98
[2017-07-19 02:00] VITALS: BP 111/60; PULSE 106; RESP 18; TEMP 100.2; O2SAT 95
[2017-07-19 06:21] VITALS: BP 112/54; PULSE 98; RESP 17; TEMP 99.8; O2SAT 99
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
--- NOTE | 2017-07-19 11:22 | PD ---
HPI Chief Complaint: Psychiatric Symptoms Time Seen by Provider: 11:30 Travel History International Travel<30 days: No Contact w/Intl Traveler<30days: No Traveled to known affect area: No History of Present Illness HPI This report is in ERROR Please disregard this report and all prior copies ! This report is in ERROR Please disregard this report and all prior copies ! This report is in ERROR Please disregard this report and all prior copies ! PFSH Past Medical History Asthma: Yes Blood Disorders: No Cancer: No Cardiovascular Problems: No Chemotherapy: No Diminished Hearing: No Endocrine: No Genitourinary: No Musculoskeletal: No Neurologic: No Psychiatric: No Reproductive: No Respiratory: No Immunizations Current: Yes ?: Unknown : 0 Past Surgical History Other Surgery: No Social History Alcohol Use: Yes (OCCASIONALLY PER PT) Tobacco Use: No Substance Use: No (alcohol, cocaine, 2ppd) Allergies-Medications (Allergen,Severity, Reaction): Coded Allergies: No Known Allergies (Unverified , 04/11/17) Reported Meds & Prescriptions Reported Meds & Active Scripts Active Physical Exam Narrative This report is in ERROR Please disregard this report and all prior copies ! This report is in ERROR Please disregard this report and all prior copies ! This report is in ERROR Please disregard this report and all prior copies ! Data Data Last Documented VS Vital Signs Date Time Temp Pulse Resp B/P (MAP) Pulse Ox O2 Delivery O2 Flow Rate FiO2 07/19/17 12:51 07/19/17 06:21 99.8 98 17 99 Room Air Orders Orders Complete Blood Count With Diff (07/18/17 22:22) Comprehensive Metabolic Panel (07/18/17 22:22) Ed Urine Pregnancytest Poc (07/18/17 22:22) Psych Screen (07/18/17 22:22) Drug Screen, Random Urine (07/18/17 22:22) Alcohol (Ethanol) (07/18/17 22:22) Salicylates (Aspirin) (07/18/17 22:22) Tylenol (Acetaminophen) (07/18/17 22:22) Diet Regular Basic (07/19/17 Breakfast) Ed Discharge Order (07/19/17 11:22) Labs Laboratory Tests Test 07/18/17 22:20 White Blood Count 9.0 TH/MM3 Red Blood Count 4.25 MIL/MM3 Hemoglobin 13.4 GM/DL Hematocrit 37.5 % Mean Corpuscular Volume 88.1 FL Mean Corpuscular Hemoglobin 31.4 PG Mean Corpuscular Hemoglobin Concent 35.6 % Red Cell Distribution Width 12.8 % Platelet Count 230 TH/MM3 Mean Platelet Volume 10.5 FL Neutrophils (%) (Auto) 51.8 % Lymphocytes (%) (Auto) 42.0 % Monocytes (%) (Auto) 5.1 % Eosinophils (%) (Auto) 0.6 % Basophils (%) (Auto) 0.5 % Neutrophils # (Auto) 4.6 TH/MM3 Lymphocytes # (Auto) 3.8 TH/MM3 Monocytes # (Auto) 0.5 TH/MM3 Eosinophils # (Auto) 0.1 TH/MM3 Basophils # (Auto) 0.0 TH/MM3 CBC Comment DIFF FINAL Differential Comment Blood Urea Nitrogen 9 MG/DL Creatinine 1.17 MG/DL Random Glucose 85 MG/DL Total Protein 8.9 GM/DL Albumin 4.7 GM/DL Calcium Level 9.1 MG/DL Alkaline Phosphatase 84 U/L Aspartate Amino Transf (AST/SGOT) 20 U/L Alanine Aminotransferase (ALT/SGPT) 25 U/L Total Bilirubin 0.8 MG/DL Sodium Level 144 MEQ/L Potassium Level 3.6 MEQ/L Chloride Level 109 MEQ/L Carbon Dioxide Level 24.8 MEQ/L Anion Gap 10 MEQ/L Estimat Glomerular Filtration Rate 63 ML/MIN Salicylates Level LESS THAN 1.7 MG/DL Urine Opiates Screen NEG Acetaminophen Level LESS THAN 2.0 MCG/ML Urine Barbiturates Screen NEG Urine Amphetamines Screen NEG Urine Benzodiazepines Screen NEG Urine Cocaine Screen POS Urine Cannabinoids Screen NEG Ethyl Alcohol Level 251 MG/DL MDM Medical Decision Making Medical Screen Exam Complete: Yes Emergency Medical Condition: Yes Differential Diagnosis This report is in ERROR Please disregard this report and all prior copies ! This report is in ERROR Please disregard this report and all prior copies ! This report is in ERROR Please disregard this report and all prior copies ! Narrative Course This report is in ERROR Please disregard this report and all prior copies ! This report is in ERROR Please disregard this report and all prior copies ! This report is in ERROR Please disregard this report and all prior copies ! Diagnosis Primary Impression: Adjustment disorder with mixed disturbance of emotions and conduct Scripts Unable to Obtain Active Prescriptions or Reported Meds Condition: Stable Chela Mead Jul 19, 2017 11:22
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
== END 2017-07-19 12:54 | disposition home or self-care (01) ==
LOC: NEPD 21:53 → NEPJ 07-19 12:54
DX: F43.25 Adjustment disorder with mixed disturbance of emotions and conduct (principal); F10.129 Alcohol abuse with intoxication, unspecified; Y90.8 Blood alcohol level of 240 mg/100 ml or more
CPT/HCPCS: 80053; 80307; 84703; 85025; 99283

== ENCOUNTER 2017-08-15 02:52 | Emergency (ER) | payer OTHER ==
[2017-08-15 02:54] VITALS: BP 139/87; PULSE 110; RESP 17; O2SAT 99
[2017-08-15] MEDS ORDERED: SODIUM CHLORID 0.9% 500 ML INJ 500 ML IV ONE (03:30)
[2017-08-15 03:52] LABS: AUTOMATED NEUTROPHIL # 2.1 TH/MM3 (1.8-7.7); BASOPHIL % 1.1 % (0.0-2.0); EOSINOPHIL % 0.1 % (0.0-4.0); HEMATOCRIT 33.6 % (35.0-46.0); HEMOGLOBIN 11.7 GM/DL (11.6-15.3); LYMPH % 44.8 % (9.0-44.0); MEAN CELL VOLUME 88.1 FL (80.0-100.0); MEAN CORPUSCULAR HEMOGLOBIN 30.7 PG (27.0-34.0); MEAN CORPUSCULAR HGB CONC 34.9 % (32.0-36.0); MEAN PLATELET VOLUME 10.6 FL (7.0-11.0); MONO % 7.1 % (0.0-8.0); MONOCYTE # 0.3 TH/MM3 (0-0.9); NEUT % 46.9 % (16.0-70.0); PLATELET COUNT 256 TH/MM3 (150-450); RED BLOOD COUNT 3.81 MIL/MM3 (4.00-5.30); RED CELL DISTRIBUTION WIDTH 13.7 % (11.6-17.2); WHITE BLOOD COUNT 4.4 TH/MM3 (4.0-11.0)
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
[2017-08-15 04:12] LABS: ALBUMIN 4.1 GM/DL (3.4-5.0); ALT (GPT) 19 U/L (10-53); AST (GOT) 21 U/L (15-37); BICARBONATE 22.7 MEQ/L (21.0-32.0); BLOOD UREA NITROGEN 8 MG/DL (7-18); CALCIUM 9.1 MG/DL (8.5-10.1); CHLORIDE 109 MEQ/L (98-107); CREATININE 1.06 MG/DL (0.50-1.00); GLOMERULAR FILTRATION RATE 70 ML/MIN (>89); GLUCOSE,RANDOM 95 MG/DL (74-106); LIPASE 143 U/L (73-393); MAGNESIUM 2.3 MG/DL (1.5-2.5); SODIUM (NA) 143 MEQ/L (136-145)
[2017-08-15 04:19] LABS: ALKALINE PHOSPHATASE 82 U/L (45-117); TOTAL BILIRUBIN ADULT 0.3 MG/DL (0.2-1.0); TOTAL PROTEIN 8.6 GM/DL (6.4-8.2)
[2017-08-15 04:31] VITALS: O2SAT 97
[2017-08-15 05:32] LABS: BILIRUBIN, URINE NEG (NEG); BLOOD, URINE NEG (NEG); GLUCOSE,URINE NEG (NEG); KETONE, URINE NEG (NEG); NITRITE,URINE NEG (NEG); URINE COLOR YELLOW (YELLW/STRAW); URINE LEUKOCYTE ESTERASE NEG (NEG)
[2017-08-15 05:43] LABS: BACTERIA, URINE RARE /hpf; WBC, URINE 0-2 /hpf (0-5)
[2017-08-15 05:44] LABS: SQUAMOUS EPITHELIAL CELL URINE 0-5 /hpf (0-5)
[2017-08-15 07:19] VITALS: BP 116/72; PULSE 86; RESP 16; O2SAT 100
--- NOTE | 2017-08-15 08:46 | EKG ---
Date Performed: 08/15/2017 Time Performed: 04:49:29 PTAGE: 36 years EKG: Sinus rhythm INCOMPLETE RIGHT BUNDLE BRANCH BLOCK BORDERLINE ECG No significant change from prior electrocardiogr am. PREVIOUS TRACING : 04/11/2017 08.28 DOCTOR: Angel Garcia Interpretating Date/Time 08/15/2017 08:45:37
[2017-08-15 09:50] VITALS: BP 110/70; PULSE 82; RESP 14; O2SAT 100
== END 2017-08-15 09:51 | disposition home or self-care (01) ==
LOC: NEPE 02:52
DX: R41.0 Disorientation, unspecified (principal); F10.929 Alcohol use, unspecified with intoxication, unspecified; F14.90 Cocaine use, unspecified, uncomplicated; R94.31 Abnormal electrocardiogram [ECG] [EKG]
CPT/HCPCS: 80053; 80307; 81001; 82550; 82552; 83690; 83735; 84443; 84703; 85025; 93005; 96360; 96361; 99284; J7040

== ENCOUNTER 2017-09-28 03:40 | Emergency (ER) | payer OTHER ==
[~2017-09-28] VITALS: Ht 149.9 cm; Wt 45.0 kg
[2017-09-28] MEDS ORDERED: SODIUM CHLOR 0.9% 1000 ML INJ 1,000 ML IV ONE (04:15)
[2017-09-28] MEDS ORDERED: SODIUM CHLORIDE 0.9% FLUSH 10 ML FLUSH IVF PRN (04:15)
[2017-09-28 04:22] VITALS: O2SAT 100
[2017-09-28 04:33] LABS: AUTOMATED NEUTROPHIL # 2.5 TH/MM3 (1.8-7.7); BASOPHIL % 0.6 % (0.0-2.0); EOSINOPHIL % 0.2 % (0.0-4.0); HEMATOCRIT 35.7 % (35.0-46.0); HEMOGLOBIN 12.6 GM/DL (11.6-15.3); LYMPH % 46.5 % (9.0-44.0); LYMPHOCYTE # 2.5 TH/MM3 (1.0-4.8); MEAN CELL VOLUME 86.3 FL (80.0-100.0); MEAN CORPUSCULAR HEMOGLOBIN 30.4 PG (27.0-34.0); MEAN CORPUSCULAR HGB CONC 35.3 % (32.0-36.0); MEAN PLATELET VOLUME 10.1 FL (7.0-11.0); MONO % 6.7 % (0.0-8.0); MONOCYTE # 0.4 TH/MM3 (0-0.9); PLATELET COUNT 220 TH/MM3 (150-450); RED BLOOD COUNT 4.13 MIL/MM3 (4.00-5.30); RED CELL DISTRIBUTION WIDTH 12.8 % (11.6-17.2); WHITE BLOOD COUNT 5.4 TH/MM3 (4.0-11.0)
[2017-09-28 04:53] LABS: ALBUMIN 4.5 GM/DL (3.4-5.0); ALT (GPT) 18 U/L (10-53); AST (GOT) 18 U/L (15-37); BICARBONATE 25.1 MEQ/L (21.0-32.0); BLOOD UREA NITROGEN 10 MG/DL (7-18); CALCIUM 8.5 MG/DL (8.5-10.1); CHLORIDE 111 MEQ/L (98-107); CREATININE 0.98 MG/DL (0.50-1.00); GLOMERULAR FILTRATION RATE 76 ML/MIN (>89); GLUCOSE,RANDOM 88 MG/DL (74-106); SODIUM (NA) 145 MEQ/L (136-145)
[2017-09-28 04:57] LABS: ALKALINE PHOSPHATASE 77 U/L (45-117); TOTAL BILIRUBIN ADULT 0.6 MG/DL (0.2-1.0); TOTAL PROTEIN 8.8 GM/DL (6.4-8.2); TROPONIN I LESS THAN 0.02 NG/ML (0.02-0.05)
--- NOTE | 2017-09-28 05:11 | RADRPT ---
EXAM DATE/TIME: 09/28/2017 04:46 [place] COMPARISON: CHEST SINGLE AP, April 11, 2017, 7:46. INDICATIONS : Chest pain and shortness of breath. MEDICAL HISTORY : None. SURGICAL HISTORY : None. ENCOUNTER: Initial ACUITY: 1 day PAIN SCORE: 5/10 LOCATION: chest FINDINGS: Hyperinflation. Heart size normal. Lungs are clear. Osseous structures are intact. CONCLUSION: No acute disease. Jose Shin MD on September 28, 2017 at 5:08 Board Certified Radiologist. This report was verified electronically.
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
[2017-09-28 08:00] VITALS: BP 114/68; PULSE 99; RESP 14; O2SAT 100
--- NOTE | 2017-09-28 09:49 | PD ---
Physical Exam Narrative GENERAL: SKIN: Warm and dry. HEAD: Atraumatic. Normocephalic. EYES: Pupils equal and round. No scleral icterus. No injection or drainage. ENT: No nasal bleeding or discharge. Mucous membranes pink and moist. NECK: Trachea midline. No JVD. CARDIOVASCULAR: Regular rate and rhythm. RESPIRATORY: No accessory muscle use. Clear to auscultation. Breath sounds equal bilaterally. GASTROINTESTINAL: Abdomen soft, non-tender, nondistended. MUSCULOSKELETAL: Extremities without clubbing, cyanosis, or edema. No obvious deformities. NEUROLOGICAL: Awake and alert. No obvious cranial nerve deficits. Motor grossly within normal limits. Five out of 5 muscle strength in the arms and legs. Normal speech. PSYCHIATRIC: Appropriate mood and affect; insight and judgment normal. Data Data Last Documented VS Vital Signs Date Time Temp Pulse Resp B/P (MAP) Pulse Ox O2 Delivery O2 Flow Rate FiO2 09/28/17 08:00 99 14 114/68 (83) 100 Room Air Orders Orders Electrocardiogram (09/28/17 04:09) Complete Blood Count With Diff (09/28/17 04:09) Comprehensive Metabolic Panel (09/28/17 04:09) Troponin I (09/28/17 04:09) Lipase (09/28/17 04:09) Chest, Single Ap (09/28/17 04:09) Ecg Monitoring (09/28/17 04:09) Bilateral Bp Monitoring (09/28/17 04:09) Iv Access Insert/Monitor (09/28/17 04:09) Oximetry (09/28/17 04:09) Oxygen Administration (09/28/17 04:09) Sodium Chloride 0.9% Flush (Ns Flush) (09/28/17 04:15) Drug Screen, Random Urine (09/28/17 04:09) Alcohol (Ethanol) (09/28/17 04:09) Sodium Chlor 0.9% 1000 Ml Inj (Ns 1000 M (09/28/17 04:15) Ed Discharge Order (09/28/17 09:59) Labs Laboratory Tests Test 09/28/17 04:10 White Blood Count 5.4 TH/MM3 Red Blood Count 4.13 MIL/MM3 Hemoglobin 12.6 GM/DL Hematocrit 35.7 % Mean Corpuscular Volume 86.3 FL Mean Corpuscular Hemoglobin 30.4 PG Mean Corpuscular Hemoglobin Concent 35.3 % Red Cell Distribution Width 12.8 % Platelet Count 220 TH/MM3 Mean Platelet Volume 10.1 FL Neutrophils (%) (Auto) 46.0 % Lymphocytes (%) (Auto) 46.5 % Monocytes (%) (Auto) 6.7 % Eosinophils (%) (Auto) 0.2 % Basophils (%) (Auto) 0.6 % Neutrophils # (Auto) 2.5 TH/MM3 Lymphocytes # (Auto) 2.5 TH/MM3 Monocytes # (Auto) 0.4 TH/MM3 Eosinophils # (Auto) 0.0 TH/MM3 Basophils # (Auto) 0.0 TH/MM3 CBC Comment DIFF FINAL Differential Comment Blood Urea Nitrogen 10 MG/DL Creatinine 0.98 MG/DL Random Glucose 88 MG/DL Total Protein 8.8 GM/DL Albumin 4.5 GM/DL Calcium Level 8.5 MG/DL Alkaline Phosphatase 77 U/L Aspartate Amino Transf (AST/SGOT) 18 U/L Alanine Aminotransferase (ALT/SGPT) 18 U/L Total Bilirubin 0.6 MG/DL Sodium Level 145 MEQ/L Potassium Level 3.8 MEQ/L Chloride Level 111 MEQ/L Carbon Dioxide Level 25.1 MEQ/L Anion Gap 9 MEQ/L Estimat Glomerular Filtration Rate 76 ML/MIN Troponin I LESS THAN 0.02 NG/ML Lipase 137 U/L Urine Opiates Screen NEG Urine Barbiturates Screen NEG Urine Amphetamines Screen NEG Urine Benzodiazepines Screen NEG Urine Cocaine Screen POS Urine Cannabinoids Screen NEG Ethyl Alcohol Level 293 MG/DL [facility] Medical Record Reviewed: Yes Supervised Visit with PHAN: No Narrative Course at 10 am patient tolerated ambulating on her own without any assistance, able to tolerate po well. patient will be d/c Diagnosis Primary Impression: Alcohol intoxication Qualified Codes: F10.920 - Alcohol use, unspecified with intoxication, uncomplicated Additional Impression: s/p sobriety Scripts Unable to Obtain Active Prescriptions or Reported Meds Jorge Ontiveros MD Sep 28, 2017 09:49
--- NOTE | 2017-09-28 21:17 | EKG ---
Date Performed: 09/28/2017 Time Performed: 04:18:06 PTAGE: 37 years EKG: Sinus rhythm POSSIBLE LEFT ATRIAL ENLARGEMENT BORDERLINE LEFT AXIS DEVIATION POSSIBLE RIGHT VENTRICULAR CONDUCTIO N DELAY Compared to previous tracing, left atrial abnormality new from the prior tracing BORDERLINE E CG PREVIOUS TRACING : 08/15/2017 04.49 DOCTOR: León Marrero Interpretating Date/Time 09/28/2017 21:16:10
== END 2017-09-28 10:25 | disposition home or self-care (01) ==
LOC: NEPC 03:40
DX: F10.920 Alcohol use, unspecified with intoxication, uncomplicated (principal); Y90.8 Blood alcohol level of 240 mg/100 ml or more; F14.90 Cocaine use, unspecified, uncomplicated; R94.31 Abnormal electrocardiogram [ECG] [EKG]; J45.909 Unspecified asthma, uncomplicated; F17.210 Nicotine dependence, cigarettes, uncomplicated
CPT/HCPCS: 71045; 80053; 80307; 83690; 84484; 85025; 93005; 96360; 96361; 99285; J7030

== ENCOUNTER 2017-10-12 21:31 | Emergency (ER) | payer OTHER ==
[~2017-10-12] VITALS: Ht 147.3 cm; Wt 45.0 kg
[2017-10-12 21:32] VITALS: BP 127/75; PULSE 128; RESP 6; O2SAT 100
--- NOTE | 2017-10-12 21:49 | PD ---
HPI Chief Complaint: Altered Mental Status Time Seen by Provider: 21:33 Travel History International Travel<30 days: No Contact w/Intl Traveler<30days: No Traveled to known affect area: No History of Present Illness HPI Patient is a 37-year-old female found outside of a convenience store staring altered brought to triage by car. Triage she was unresponsive with her eyes wide open staring vitals were within normal limits she would not answer questions she is rushed to the back to the ER exam room. After time when we get her on the monitor asking her questions she starts to reply she doesn't know she just drank some alcohol. She was here 2 weeks ago similar alcohol and took a bottle of sleeping pill she reported at that time and was observed in the ER and then discharged we will observe due urine screen. Intoxication's alcohol levels Tylenol levels and observed possible discharge PFS Past Medical History Asthma: Yes Blood Disorders: No Cancer: No Cardiovascular Problems: No Chemotherapy: No Diminished Hearing: No Endocrine: No Genitourinary: No Musculoskeletal: No Neurologic: No Psychiatric: No Reproductive: No Respiratory: No Immunizations Current: Yes ?: Unknown : 0 Past Surgical History Other Surgery: No Social History Alcohol Use: Yes (OCCASIONALLY PER PT) Tobacco Use: Yes Substance Use: Yes (alcohol, cocaine, 2ppd) Allergies-Medications (Allergen,Severity, Reaction): Coded Allergies: No Known Allergies (Unverified Adverse Reaction, Unknown, 10/12/17) Reported Meds & Prescriptions Reported Meds & Active Scripts Active Active Prescriptions or Reported Medications Unobtainable Review of Systems ROS Limitations: Poor Historian Physical Exam Narrative GENERAL: staring off into space not responding, then she started talking SKIN: Warm and dry. HEAD: Atraumatic. Normocephalic. EYES: Pupils equal and round. No scleral icterus. No injection or drainage. ENT: No nasal bleeding or discharge. Mucous membranes pink and moist. NECK: Trachea midline. No JVD. CARDIOVASCULAR: Regular rate and rhythm. RESPIRATORY: No accessory muscle use. Clear to auscultation. Breath sounds equal bilaterally. GASTROINTESTINAL: Abdomen soft, non-tender, nondistended. Hepatic and splenic margins not palpable. MUSCULOSKELETAL: Extremities without clubbing, cyanosis, or edema. No obvious deformities. NEUROLOGICAL: Awake and alert. No obvious cranial nerve deficits. Motor grossly within normal limits. Five out of 5 muscle strength in the arms and legs. Normal speech. PSYCHIATRIC: staring non reponding to question ,,, eventually started talking Data Data Last Documented VS Vital Signs Date Time Temp Pulse Resp B/P (MAP) Pulse Ox O2 Delivery O2 Flow Rate FiO2 10/12/17 21:35 125 10 99 Room Air 10/12/17 21:32 127/75 (92) Orders Orders Electrocardiogram (10/12/17 21:36) Complete Blood Count With Diff (10/12/17 21:36) Comprehensive Metabolic Panel (10/12/17 21:36) Lipase (10/12/17 21:36) Drug Screen, Random Urine (10/12/17 21:36) Alcohol (Ethanol) (10/12/17 21:36) Salicylates (Aspirin) (10/12/17 21:36) Tylenol (Acetaminophen) (10/12/17 21:36) Urinalysis - C+S If Indicated (10/12/17 21:38) Ed Discharge Order (10/12/17 23:44) Labs Laboratory Tests Test 10/12/17 21:35 10/12/17 21:40 White Blood Count 8.1 TH/MM3 Red Blood Count 4.12 MIL/MM3 Hemoglobin 12.4 GM/DL Hematocrit 35.9 % Mean Corpuscular Volume 87.0 FL Mean Corpuscular Hemoglobin 30.1 PG Mean Corpuscular Hemoglobin Concent 34.6 % Red Cell Distribution Width 13.0 % Platelet Count 212 TH/MM3 Mean Platelet Volume 9.9 FL Neutrophils (%) (Auto) 44.0 % Lymphocytes (%) (Auto) 38.7 % Monocytes (%) (Auto) 16.4 % Eosinophils (%) (Auto) 0.7 % Basophils (%) (Auto) 0.2 % Neutrophils # (Auto) 3.6 TH/MM3 Lymphocytes # (Auto) 3.1 TH/MM3 Monocytes # (Auto) 1.3 TH/MM3 Eosinophils # (Auto) 0.1 TH/MM3 Basophils # (Auto) 0.0 TH/MM3 CBC Comment DIFF FINAL Differential Comment Blood Urea Nitrogen 13 MG/DL Creatinine 0.82 MG/DL Random Glucose 99 MG/DL Total Protein 8.3 GM/DL Albumin 4.2 GM/DL Calcium Level 8.7 MG/DL Alkaline Phosphatase 87 U/L Aspartate Amino Transf (AST/SGOT) 37 U/L Alanine Aminotransferase (ALT/SGPT) 41 U/L Total Bilirubin 0.7 MG/DL Sodium Level 142 MEQ/L Potassium Level 3.0 MEQ/L Chloride Level 107 MEQ/L Carbon Dioxide Level 26.0 MEQ/L Anion Gap 9 MEQ/L Estimat Glomerular Filtration Rate 94 ML/MIN Lipase 238 U/L Salicylates Level LESS THAN 1.7 MG/DL Acetaminophen Level LESS THAN 2.0 MCG/ML Ethyl Alcohol Level 235 MG/DL Urine Color COLORLESS Urine Turbidity CLEAR Urine pH 5.5 Urine Specific [place] 1.004 Urine Protein NEG mg/dL Urine Glucose (UA) NEG mg/dL Urine Ketones NEG mg/dL Urine Occult Blood NEG Urine Nitrite NEG Urine Bilirubin NEG Urine Urobilinogen LESS THAN 2.0 MG/DL Urine Leukocyte Esterase NEG Microscopic Urinalysis Comment CULT NOT INDICATED Urine Opiates Screen NEG Urine Barbiturates Screen NEG Urine Amphetamines Screen NEG Urine Benzodiazepines Screen NEG Urine Cocaine Screen NEG Urine Cannabinoids Screen NEG MDM Medical Decision Making Medical Screen Exam Complete: Yes Emergency Medical Condition: Yes Differential Diagnosis intox vs sepsis vs neurologic global fugue state vs alcoholism , polysubstance abuse Narrative Course pt etoh level very high 235 .and after obvservation and family arrival pt returns to her baseline and I discharge her with her sister who will stay with [facility] . Diagnosis Primary Impression: Alcohol intoxication Qualified Codes: F10.920 - Alcohol use, unspecified with intoxication, uncomplicated Patient Instructions: Abuse of Alcohol (ED), General Instructions Scripts Unable to Obtain Active Prescriptions or Reported Meds David Vera MD Oct 12, 2017 21:49
[2017-10-12 22:32] LABS: AUTOMATED NEUTROPHIL # 3.6 TH/MM3 (1.8-7.7); BASOPHIL % 0.2 % (0.0-2.0); EOSINOPHIL # 0.1 TH/MM3 (0-0.4); EOSINOPHIL % 0.7 % (0.0-4.0); HEMATOCRIT 35.9 % (35.0-46.0); HEMOGLOBIN 12.4 GM/DL (11.6-15.3); LYMPH % 38.7 % (9.0-44.0); LYMPHOCYTE # 3.1 TH/MM3 (1.0-4.8); MEAN CORPUSCULAR HEMOGLOBIN 30.1 PG (27.0-34.0); MEAN CORPUSCULAR HGB CONC 34.6 % (32.0-36.0); MEAN PLATELET VOLUME 9.9 FL (7.0-11.0); MONO % 16.4 % (0.0-8.0); MONOCYTE # 1.3 TH/MM3 (0-0.9); PLATELET COUNT 212 TH/MM3 (150-450); RED BLOOD COUNT 4.12 MIL/MM3 (4.00-5.30); WHITE BLOOD COUNT 8.1 TH/MM3 (4.0-11.0)
[2017-10-12 22:53] LABS: ALKALINE PHOSPHATASE 87 U/L (45-117); TOTAL BILIRUBIN ADULT 0.7 MG/DL (0.2-1.0); TOTAL PROTEIN 8.3 GM/DL (6.4-8.2)
[2017-10-12 23:08] LABS: ALBUMIN 4.2 GM/DL (3.4-5.0); ALT (GPT) 41 U/L (10-53); AST (GOT) 37 U/L (15-37); BLOOD UREA NITROGEN 13 MG/DL (7-18); CALCIUM 8.7 MG/DL (8.5-10.1); CHLORIDE 107 MEQ/L (98-107); CREATININE 0.82 MG/DL (0.50-1.00); GLOMERULAR FILTRATION RATE 94 ML/MIN (>89); GLUCOSE,RANDOM 99 MG/DL (74-106); SODIUM (NA) 142 MEQ/L (136-145)
[2017-10-12 23:15] LABS: ACETAMINOPHEN LESS THAN 2.0 MCG/ML (10.0-30.0)
[2017-10-13 06:28] LABS: BILIRUBIN, URINE NEG (NEG); BLOOD, URINE NEG (NEG); GLUCOSE,URINE NEG (NEG); KETONE, URINE NEG (NEG); NITRITE,URINE NEG (NEG); PH, URINE 5.5 (5.0-8.5); URINE COLOR COLORLESS (YELLW/STRAW); URINE LEUKOCYTE ESTERASE NEG (NEG)
--- NOTE | 2017-10-13 14:39 | EKG ---
Date Performed: 10/12/2017 Time Performed: 21:32:56 PTAGE: 37 years EKG: SINUS TACHYCARDIA INCOMPLETE RIGHT BUNDLE BRANCH BLOCK ABNORMAL RHYTHM ECG Since PREVIOUS TRACING , no significant change noted PREVIOUS TRACIN09/28/2017 04.18.06 DOCTOR: Wilver Jaimes Interpretating Date/Time 10/13/2017 14:38:04
== END 2017-10-13 00:06 | disposition home or self-care (01) ==
LOC: NEPE 21:31
DX: F10.920 Alcohol use, unspecified with intoxication, uncomplicated (principal); Y90.7 Blood alcohol level of 200-239 mg/100 ml; I44.30 Unspecified atrioventricular block; J45.909 Unspecified asthma, uncomplicated; Z72.0 Tobacco use
CPT/HCPCS: 80053; 80307; 81001; 83690; 85025; 93005; 99284

== ENCOUNTER 2017-10-16 00:42 | Emergency (ER) | payer OTHER ==
[~2017-10-16] VITALS: Ht 149.9 cm; Wt 40.0 kg
[2017-10-16 01:04] VITALS: BP 130/103; PULSE 79; RESP 16; TEMP 98.1; O2SAT 100
[2017-10-16 01:10] VITALS: RESP 16; O2SAT 100
[2017-10-16] MEDS ORDERED: SODIUM CHLOR 0.9% 1000 ML INJ 1,000 ML IV SCH (01:29)
[2017-10-16] MEDS ORDERED: SODIUM CHLORIDE 0.9% FLUSH 10 ML FLUSH IV FLUSH PRN (01:30)
[2017-10-16] MEDS ORDERED: FAMOTIDINE 20 MG/2 ML VIAL IV PUSH ONE (01:30)
[2017-10-16] MEDS ORDERED: MORPHINE SULFATE 4 MG/ML INJ IV PUSH ONE ×2 (01:30→03:30)
[2017-10-16] MEDS ORDERED: ONDANSETRON HCL 4 MG/2 ML VIAL IVP ONE (01:30)
[2017-10-16 01:54] LABS: AUTOMATED NEUTROPHIL # 4.8 TH/MM3 (1.8-7.7); BASOPHIL # 0.1 TH/MM3 (0-0.2); BASOPHIL % 1.5 % (0.0-2.0); EOSINOPHIL # 0.1 TH/MM3 (0-0.4); EOSINOPHIL % 1.5 % (0.0-4.0); HEMATOCRIT 34.5 % (35.0-46.0); HEMOGLOBIN 12.5 GM/DL (11.6-15.3); LYMPH % 23.6 % (9.0-44.0); LYMPHOCYTE # 1.9 TH/MM3 (1.0-4.8); MEAN CELL VOLUME 85.8 FL (80.0-100.0); MEAN PLATELET VOLUME 9.9 FL (7.0-11.0); MONO % 12.1 % (0.0-8.0); NEUT % 61.3 % (16.0-70.0); PLATELET COUNT 193 TH/MM3 (150-450); RED BLOOD COUNT 4.02 MIL/MM3 (4.00-5.30); RED CELL DISTRIBUTION WIDTH 12.6 % (11.6-17.2); WHITE BLOOD COUNT 7.9 TH/MM3 (4.0-11.0)
[2017-10-16 01:55] LABS: MEAN CORPUSCULAR HGB CONC 36.2 % (32.0-36.0)
--- NOTE | 2017-10-16 01:59 | PD ---
HPI Chief Complaint: Abdominal Pain Time Seen by Provider: 00:56 Travel History International Travel<30 days: No Contact w/Intl Traveler<30days: No Traveled to known affect area: No History of Present Illness HPI The patient is a 37-year-old after [place] female who presents to the emergency department for abdominal pain. The patient states she developed abdominal pain 2 days ago located in the epigastrium and right upper quadrant. The pain is constant, nonradiating, associated nausea but no vomiting or diarrhea. She denies any history of pancreatitis or previous abdominal surgeries. She does have a history of alcohol abuse, states she has not drank any alcohol since Sunday. Her symptoms started on Sunday. She denies any fever, chills, or sweats. Symptoms are worse with lying supine and certain types of movement. She denies any chest pain or shortness of breath. Symptoms are moderate. PFSH Past Medical History Asthma: Yes Blood Disorders: No Cancer: No Cardiovascular Problems: No Chemotherapy: No Diminished Hearing: No Endocrine: No Genitourinary: No Musculoskeletal: No Neurologic: No Psychiatric: No Reproductive: No Respiratory: No Immunizations Current: Yes Tetanus Vaccination: < 5 Years Influenza Vaccination: No ?: Not : 0 Past Surgical History Surgical History: No Previous Surgery Other Surgery: No Social History Alcohol Use: Yes Tobacco Use: No Substance Use: No Allergies-Medications (Allergen,Severity, Reaction): Coded Allergies: No Known Allergies (Unverified Adverse Reaction, Unknown, 10/12/17) Reported Meds & Prescriptions Reported Meds & Active Scripts Active Active Prescriptions or Reported Medications Unobtainable Review of Systems Except as stated in HPI: all other systems reviewed are Neg HENT: No: Lightheadedness Cardiovascular: No: Chest Pain or Discomfort Respiratory: No: Shortness of Breath Gastrointestinal: Positive: Nausea, Abdominal Pain, No: Vomiting, Diarrhea Genitourinary: No: Dysuria, Discharge, Vaginal Bleeding Physical Exam Narrative GENERAL: Awake, alert, pleasant 37-year-old female who appears her stated age and is in no acute respiratory distress. SKIN: Focused skin assessment warm/dry. HEAD: Atraumatic. Normocephalic. EYES: No injection or drainage. ENT: No nasal bleeding or discharge. Mucous membranes pink and moist. NECK: Trachea midline. No JVD. CARDIOVASCULAR: Regular rate and rhythm. No murmur appreciated. RESPIRATORY: No accessory muscle use. Clear to auscultation. Breath sounds equal bilaterally. GASTROINTESTINAL: Abdomen s is tender palpation right upper quadrant and epigastrium. Mild guarding. No rigidity. MUSCULOSKELETAL: No obvious deformities. No clubbing. No cyanosis. No edema. NEUROLOGICAL: Awake and alert. No obvious cranial nerve deficits. Motor grossly within normal limits. Normal speech. PSYCHIATRIC: Appropriate mood and affect; insight and judgment normal. Data Data Last Documented VS Vital Signs Date Time Temp Pulse Resp B/P (MAP) Pulse Ox O2 Delivery O2 Flow Rate FiO2 10/16/17 01:10 16 100 Room Air 10/16/17 01:04 98.1 79 130/103 (112) Orders Orders Complete Blood Count With Diff (10/16/17:29) Comprehensive Metabolic Panel (10/16/17:29) Lipase (10/16/17:29) Urinalysis - C+S If Indicated (10/16/17:29) Ct Abd/Pel W Iv Contrast(Rout) (10/16/17:29) Iv Access Insert/Monitor (10/16/17:29) Ecg Monitoring (10/16/17:29) Oximetry (10/16/17:29) Morphine Inj (Morphine Inj) (10/16/17 01:30) Ondansetron Inj (Zofran Inj) (10/16/17 01:30) Sodium Chlor 0.9% 1000 Ml Inj (Ns 1000 M (10/16/17 01:29) Sodium Chloride 0.9% Flush (Ns Flush) (10/16/17 01:30) Famotidine Inj (Pepcid Inj) (10/16/17 01:30) Alcohol (Ethanol) (10/16/17 01:29) Iohexol 350 Inj (Omnipaque 350 Inj) (10/16/17 03:06) Labs Laboratory Tests Test 10/16/17 01:40 White Blood Count 7.9 TH/MM3 Red Blood Count 4.02 MIL/MM3 Hemoglobin 12.5 GM/DL Hematocrit 34.5 % Mean Corpuscular Volume 85.8 FL Mean Corpuscular Hemoglobin 31.0 PG Mean Corpuscular Hemoglobin Concent 36.2 % Red Cell Distribution Width 12.6 % Platelet Count 193 TH/MM3 Mean Platelet Volume 9.9 FL Neutrophils (%) (Auto) 61.3 % Lymphocytes (%) (Auto) 23.6 % Monocytes (%) (Auto) 12.1 % Eosinophils (%) (Auto) 1.5 % Basophils (%) (Auto) 1.5 % Neutrophils # (Auto) 4.8 TH/MM3 Lymphocytes # (Auto) 1.9 TH/MM3 Monocytes # (Auto) 1.0 TH/MM3 Eosinophils # (Auto) 0.1 TH/MM3 Basophils # (Auto) 0.1 TH/MM3 CBC Comment AUTO DIFF Differential Comment AUTO DIFF CONFIRMED Platelet Estimate NORMAL Platelet Morphology Comment NORMAL Blood Urea Nitrogen 14 MG/DL Creatinine 0.70 MG/DL Random Glucose 107 MG/DL Total Protein 8.1 GM/DL Albumin 3.8 GM/DL Calcium Level 9.2 MG/DL Alkaline Phosphatase 76 U/L Aspartate Amino Transf (AST/SGOT) 19 U/L Alanine Aminotransferase (ALT/SGPT) 27 U/L Total Bilirubin 0.3 MG/DL Sodium Level 139 MEQ/L Potassium Level 3.3 MEQ/L Chloride Level 106 MEQ/L Carbon Dioxide Level 26.6 MEQ/L Anion Gap 6 MEQ/L Estimat Glomerular Filtration Rate 113 ML/MIN Lipase 199 U/L Ethyl Alcohol Level LESS THAN 3 MG/DL MDM Medical Decision Making Medical Screen Exam Complete: Yes Emergency Medical Condition: Yes Medical Record Reviewed: Yes Interpretation(s) EKG reveals normal sinus rhythm with a rate of 68. RSR prime in V1, incomplete right bundle branch block. Laboratory Tests Test 10/16/17 01:40 White Blood Count 7.9 TH/MM3 Red Blood Count 4.02 MIL/MM3 Hemoglobin 12.5 GM/DL Hematocrit 34.5 % Mean Corpuscular Volume 85.8 FL Mean Corpuscular Hemoglobin 31.0 PG Mean Corpuscular Hemoglobin Concent 36.2 % Red Cell Distribution Width 12.6 % Platelet Count 193 TH/MM3 Mean Platelet Volume 9.9 FL Neutrophils (%) (Auto) 61.3 % Lymphocytes (%) (Auto) 23.6 % Monocytes (%) (Auto) 12.1 % Eosinophils (%) (Auto) 1.5 % Basophils (%) (Auto) 1.5 % Neutrophils # (Auto) 4.8 TH/MM3 Lymphocytes # (Auto) 1.9 TH/MM3 Monocytes # (Auto) 1.0 TH/MM3 Eosinophils # (Auto) 0.1 TH/MM3 Basophils # (Auto) 0.1 TH/MM3 CBC Comment AUTO DIFF Differential Comment AUTO DIFF CONFIRMED Platelet Estimate NORMAL Platelet Morphology Comment NORMAL Blood Urea Nitrogen 14 MG/DL Creatinine 0.70 MG/DL Random Glucose 107 MG/DL Total Protein 8.1 GM/DL Albumin 3.8 GM/DL Calcium Level 9.2 MG/DL Alkaline Phosphatase 76 U/L Aspartate Amino Transf (AST/SGOT) 19 U/L Alanine Aminotransferase (ALT/SGPT) 27 U/L Total Bilirubin 0.3 MG/DL Sodium Level 139 MEQ/L Potassium Level 3.3 MEQ/L Chloride Level 106 MEQ/L Carbon Dioxide Level 26.6 MEQ/L Anion Gap 6 MEQ/L Estimat Glomerular Filtration Rate 113 ML/MIN Lipase 199 U/L Ethyl Alcohol Level LESS THAN 3 MG/DL Last Impressions Abdomen/Pelvis CT 10/16/17 0129 Signed Impressions: Service Date/Time: Monday, October 16, 2017 02:55 - CONCLUSION: 1. Small amount of fluid is again noted in the cul-de-sac. This is a nonspecific finding and can be physiologic in a female patient of this age. 2. Unremarkable bowel gas pattern. 3. The common bile duct is prominent but unchanged in appearance. Yefri Bryan MD Differential Diagnosis Differential diagnosis includes gastritis, peptic ulcer disease, pancreatitis, cholecystitis, biliary colic, choledocholithiasis, pneumothorax, lower lobe pneumonia. Narrative Course IV was established, labs are drawn and sent, the patient was placed on cardiac limiting monitoring and continuous pulse oximetry monitoring. Patient was administered morphine, Zofran, and IV fluids. CT of the abdomen and pelvis was performed. CT reveals a small amount of fluid in the cul-de-sac, could be physiologic. White count is unremarkable. LFTs and lipase are unremarkable. Patient was reevaluated, was resting comfortably. The patient will be discharged home. Diagnosis Primary Impression: Epigastric abdominal pain Patient Instructions: General Instructions Additional Instructions: Please provide the patient a copy of her CT results and lab results at discharge. Follow-up with her primary physician. Return if symptoms worsen or progress. Med/Other Pt SpecificInfo: No Change to Meds Scripts Unable to Obtain Active Prescriptions or Reported Meds Disposition: DISCHARGE HOME Condition: Stable Erik Cook MD Oct 16, 2017 01:59
[2017-10-16 02:16] LABS: ALBUMIN 3.8 GM/DL (3.4-5.0); ALT (GPT) 27 U/L (10-53); AST (GOT) 19 U/L (15-37); BICARBONATE 26.6 MEQ/L (21.0-32.0); BLOOD UREA NITROGEN 14 MG/DL (7-18); CALCIUM 9.2 MG/DL (8.5-10.1); CHLORIDE 106 MEQ/L (98-107); GLOMERULAR FILTRATION RATE 113 ML/MIN (>89); GLUCOSE,RANDOM 107 MG/DL (74-106); SODIUM (NA) 139 MEQ/L (136-145)
[2017-10-16 02:18] LABS: ALKALINE PHOSPHATASE 76 U/L (45-117); TOTAL BILIRUBIN ADULT 0.3 MG/DL (0.2-1.0); TOTAL PROTEIN 8.1 GM/DL (6.4-8.2)
[2017-10-16] MEDS ORDERED: IOHEXOL 350 MG/ML 10 ML VIAL (for RAD DIAG) IVCONTRAST ONE (03:06)
--- NOTE | 2017-10-16 03:15 | RADRPT ---
EXAM DATE/TIME: 10/16/2017 02:55 [facility] COMPARISON: CT ABDOMEN & PELVIS W CONTRAST, October 13, 2014, 2:31. INDICATIONS : Abdomen pain. IV CONTRAST: 80 cc Omnipaque 350 (iohexol) IV ORAL CONTRAST: No oral contrast ingested. RADIATION DOSE: 6.64 CTDIvol (mGy) MEDICAL HISTORY : None SURGICAL HISTORY : None. ENCOUNTER: Initial ACUITY: 1 day PAIN SCALE: 8/10 LOCATION: Bilateral abdomen TECHNIQUE: Volumetric scanning of the abdomen and pelvis was performed. Using automated exposure control and ad justment of the mA and/or kV according to patient size, radiation dose was kept as low as reasonably achievable to obtain optimal diagnostic quality images. DICOM format image data is available electro nically for review and comparison. FINDINGS: LOWER LUNGS: The visualized lower lungs are clear. LIVER: Homogeneous density without lesion. There is no dilation of the biliary tree. No calcified gallston es. The common bile duct remains prominent but is unchanged in appearance. SPLEEN: Normal size without lesion. PANCREAS: Within normal limits. KIDNEYS: Normal in size and shape. There is no mass, stone or hydronephrosis. ADRENAL GLANDS: Within normal limits. VASCULAR: There is no aortic aneurysm. BOWEL/MESENTERY: No oral contrast was given limiting sensitivity. The stomach, small bowel, and colon demonstrate no a cute abnormality. There is no free intraperitoneal air. A small amount of fluid is noted in the post erior cul-de-sac. ABDOMINAL WALL: Within normal limits. RETROPERITONEUM: There is no lymphadenopathy. BLADDER: No wall thickening or mass. REPRODUCTIVE: Within normal limits. INGUINAL: There is no lymphadenopathy or hernia. MUSCULOSKELETAL: Within normal limits for patient age. CONCLUSION: 1. Small amount of fluid is again noted in the cul-de-sac. This is a nonspecific finding and can be p hysiologic in a female patient of this age. 2. Unremarkable bowel gas pattern. 3. The common bile duct is prominent but unchanged in appearance. Yefri Bryan MD on October 16, 2017 at 3:10 Board Certified Radiologist. This report was verified electronically.
[2017-10-16] MEDS ORDERED: ZANTTAB PO (03:30)
--- NOTE | 2017-10-16 19:58 | EKG ---
Date Performed: 10/16/2017 Time Performed: 00:48:10 PTAGE: 37 years EKG: Sinus rhythm INCOMPLETE RIGHT BUNDLE BRANCH BLOCK BORDERLINE ECG PREVIOUS TRACING 10/12/17 WHEN COMPARED TO PRIOR TRACING THE PATIENT IS NO LONGER TACHYCARDIC. DOCTOR: Adry Vargas Interpretating Date/Time 10/16/2017 19:57:39
== END 2017-10-16 06:43 | disposition home or self-care (01) ==
LOC: NEPC 00:42
DX: R10.13 Epigastric pain (principal); R94.31 Abnormal electrocardiogram [ECG] [EKG]; R11.0 Nausea; J45.909 Unspecified asthma, uncomplicated
CPT/HCPCS: 74177; 80053; 80307; 83690; 85025; 93005; 96361; 96374; 96375; 96376; 99285; J2270; J2405; J7030; Q9967

== ENCOUNTER 2017-11-03 16:28 | Emergency (ER) | payer OTHER ==
[~2017-11-03] VITALS: Ht 149.9 cm; Wt 42.0 kg
[~2017-11-03 16:28] MED LIST changes: -PRED20 PO; -VENTAER INH; +ZANTTAB PO
[2017-11-03 17:00] VITALS: BP 120/87; PULSE 96; RESP 16; TEMP 98.3; O2SAT 97
[2017-11-03 18:38] LABS: AUTOMATED NEUTROPHIL # 3.1 TH/MM3 (1.8-7.7); BASOPHIL % 0.4 % (0.0-2.0); EOSINOPHIL # 0.1 TH/MM3 (0-0.4); EOSINOPHIL % 1.1 % (0.0-4.0); HEMATOCRIT 38.7 % (35.0-46.0); HEMOGLOBIN 13.4 GM/DL (11.6-15.3); LYMPHOCYTE # 3.6 TH/MM3 (1.0-4.8); MEAN CELL VOLUME 84.9 FL (80.0-100.0); MEAN CORPUSCULAR HEMOGLOBIN 29.3 PG (27.0-34.0); MEAN CORPUSCULAR HGB CONC 34.5 % (32.0-36.0); MONOCYTE # 0.4 TH/MM3 (0-0.9); NEUT % 43.5 % (16.0-70.0); PLATELET COUNT 303 TH/MM3 (150-450); RED BLOOD COUNT 4.56 MIL/MM3 (4.00-5.30); RED CELL DISTRIBUTION WIDTH 13.9 % (11.6-17.2); WHITE BLOOD COUNT 7.1 TH/MM3 (4.0-11.0)
--- NOTE | 2017-11-03 18:42 | PD ---
HPI Chief Complaint: Psychiatric Symptoms Time Seen by Provider: 18:04 Travel History International Travel<30 days: No Contact w/Intl Traveler<30days: No Traveled to known affect area: No History of Present Illness HPI 37-year-old female presents emergency department under the Smith act for suicidal ideation. Patient states she wants to stab herself. Patient has been seen here before. Patient appears intoxicated. Patient denies medical problems. She is unsure whether she could be . She has no pain or other symptoms. She is allergic to penicillin. PFSH Past Medical History Asthma: Yes Blood Disorders: No Bipolar Disorder: Yes Cancer: No Cardiovascular Problems: Yes (heart murmur) Chemotherapy: No Diminished Hearing: No Endocrine: No Genitourinary: No Medical other: Yes Musculoskeletal: No Neurologic: No Psychiatric: No Reproductive: No Immunizations Current: Yes Influenza Vaccination: No ?: Unknown LMP: 10/13/17 Menopausal: No : 0 Past Surgical History Surgical History: No Previous Surgery Other Surgery: No Social History Alcohol Use: Yes (12 short beers/day "when i have money") Tobacco Use: Yes (occasional ) Allergies-Medications (Allergen,Severity, Reaction): Coded Allergies: Penicillins (Verified Allergy, Unknown, Anaphylaxis, 11/03/17) throat swells, can't breath Reported Meds & Prescriptions Reported Meds & Active Scripts Active Zantac 150 Maximum Strength (Ranitidine HCl) 150 Mg Tab 150 Mg PO BID 28 Days Review of Systems ROS Limitations: Intoxication, Poor Historian Except as stated in HPI: all other systems reviewed are Neg General / Constitutional: No: Fever Eyes: No: Visual changes HENT: No: Headaches Cardiovascular: No: Chest Pain or Discomfort Respiratory: No: Shortness of Breath Gastrointestinal: No: Abdominal Pain Genitourinary: No: Dysuria Musculoskeletal: No: Pain Skin: No Rash Neurologic: No: Weakness Psychiatric: No: Depression Endocrine: No: Polydipsia Hematologic/Lymphatic: No: Easy Bruising Physical Exam Exam Limitations: Intoxication, Poor Historian Narrative GENERAL: Patient appears slightly intoxicated and disheveled. SKIN: Warm and dry. Normal color. Normal turgor. No signs of trauma. HEAD: Atraumatic. Normocephalic. EYES: Pupils equal and round. No scleral icterus. No injection or drainage. ENT: No nasal bleeding or discharge. Mucous membranes pink and moist. Pharynx is clear. Airways patent. NECK: Trachea midline. Supple and nontender. CARDIOVASCULAR: Regular rate and rhythm. No murmurs gallops or rubs. RESPIRATORY: No accessory muscle use. Clear to auscultation. Breath sounds equal bilaterally. MUSCULOSKELETAL: Extremities without clubbing, cyanosis, or edema. No obvious deformities. NEUROLOGICAL: Awake and alert. No obvious cranial nerve deficits. Motor grossly within normal limits. Five out of 5 muscle strength in the arms and legs. Normal speech. PSYCHIATRIC: Patient admits to suicidal ideation. Data Data Last Documented VS Vital Signs Date Time Temp Pulse Resp B/P (MAP) Pulse Ox O2 Delivery O2 Flow Rate FiO2 11/03/17 17:00 98.3 96 16 120/87 (98) 97 Room Air Orders Orders Complete Blood Count With Diff (11/03/17 18:03) Comprehensive Metabolic Panel (11/03/17 18:03) Thyroid Stimulating Hormone (11/03/17 18:03) Ed Urine Pregnancytest Poc (11/03/17 18:03) Psych Screen (11/03/17 18:03) Drug Screen, Random Urine (11/03/17 18:03) Alcohol (Ethanol) (11/03/17 18:03) Labs Laboratory Tests Test 11/03/17 18:15 White Blood Count 7.1 TH/MM3 Red Blood Count 4.56 MIL/MM3 Hemoglobin 13.4 GM/DL Hematocrit 38.7 % Mean Corpuscular Volume 84.9 FL Mean Corpuscular Hemoglobin 29.3 PG Mean Corpuscular Hemoglobin Concent 34.5 % Red Cell Distribution Width 13.9 % Platelet Count 303 TH/MM3 Mean Platelet Volume 10.0 FL Neutrophils (%) (Auto) 43.5 % Lymphocytes (%) (Auto) 50.0 % Monocytes (%) (Auto) 5.0 % Eosinophils (%) (Auto) 1.1 % Basophils (%) (Auto) 0.4 % Neutrophils # (Auto) 3.1 TH/MM3 Lymphocytes # (Auto) 3.6 TH/MM3 Monocytes # (Auto) 0.4 TH/MM3 Eosinophils # (Auto) 0.1 TH/MM3 Basophils # (Auto) 0.0 TH/MM3 CBC Comment DIFF FINAL Differential Comment MDM Medical Decision Making Medical Screen Exam Complete: Yes Emergency Medical Condition: Yes Medical Record Reviewed: Yes Differential Diagnosis Smith act. Depression. Suicidal ideation. Alcohol abuse. Narrative Course Patient is medically stable at time of exam. Labs ordered per protocol including urine . Patient is medically cleared for psychiatric evaluation. Psych screen was ordered. Condition: Stable Pj Ford Nov 03, 2017 18:42
[2017-11-03 18:50] LABS: ALBUMIN 4.2 GM/DL (3.4-5.0); AST (GOT) 20 U/L (15-37); BICARBONATE 25.9 MEQ/L (21.0-32.0); BLOOD UREA NITROGEN 7 MG/DL (7-18); CHLORIDE 107 MEQ/L (98-107); GLOMERULAR FILTRATION RATE 67 ML/MIN (>89); GLUCOSE,RANDOM 112 MG/DL (74-106); SODIUM (NA) 143 MEQ/L (136-145)
[2017-11-03 18:51] LABS: ALT (GPT) 23 U/L (10-53)
[2017-11-03 19:01] LABS: ALKALINE PHOSPHATASE 82 U/L (45-117); TOTAL BILIRUBIN ADULT 0.7 MG/DL (0.2-1.0); TOTAL PROTEIN 8.5 GM/DL (6.4-8.2)
[2017-11-03 23:06] VITALS: BP 111/56; PULSE 110; RESP 20
[2017-11-04 06:51] VITALS: BP 109/68; PULSE 71; RESP 18; O2SAT 99
[2017-11-04 16:10] VITALS: BP 118/74; PULSE 82; RESP 18
--- NOTE | 2017-11-04 16:33 | PD ---
Physical Exam Date Seen by Provider: Nov 04, 2017 Time Seen by Provider: 16:32 Narrative 37-year-old female previously medically cleared after being Smith act with suicidal ideation, was seen and evaluated by the psychiatrist and deemed psychiatrically stable for discharge at this time. Patient remains medically stable at time of discharge. Follow-up will be based on psychiatric note. Data Data Last Documented VS Vital Signs Date Time Temp Pulse Resp B/P (MAP) Pulse Ox O2 Delivery O2 Flow Rate FiO2 11/04/17 16:10 82 18 118/74 (89) 11/04/17 06:51 99 Room Air 11/03/17 17:00 98.3 Orders Orders Complete Blood Count With Diff (11/03/17 18:03) Comprehensive Metabolic Panel (11/03/17 18:03) Thyroid Stimulating Hormone (11/03/17 18:03) Ed Urine Pregnancytest Poc (11/03/17 18:03) Psych Screen (11/03/17 18:03) Drug Screen, Random Urine (11/03/17 18:03) Alcohol (Ethanol) (11/03/17 18:03) Diet Regular Basic (11/04/17 Breakfast) Diet Regular Basic (11/04/17 Lunch) Labs Laboratory Tests Test 11/03/17 18:15 11/03/17 21:15 White Blood Count 7.1 TH/MM3 Red Blood Count 4.56 MIL/MM3 Hemoglobin 13.4 GM/DL Hematocrit 38.7 % Mean Corpuscular Volume 84.9 FL Mean Corpuscular Hemoglobin 29.3 PG Mean Corpuscular Hemoglobin Concent 34.5 % Red Cell Distribution Width 13.9 % Platelet Count 303 TH/MM3 Mean Platelet Volume 10.0 FL Neutrophils (%) (Auto) 43.5 % Lymphocytes (%) (Auto) 50.0 % Monocytes (%) (Auto) 5.0 % Eosinophils (%) (Auto) 1.1 % Basophils (%) (Auto) 0.4 % Neutrophils # (Auto) 3.1 TH/MM3 Lymphocytes # (Auto) 3.6 TH/MM3 Monocytes # (Auto) 0.4 TH/MM3 Eosinophils # (Auto) 0.1 TH/MM3 Basophils # (Auto) 0.0 TH/MM3 CBC Comment DIFF FINAL Differential Comment Blood Urea Nitrogen 7 MG/DL Creatinine 1.10 MG/DL Random Glucose 112 MG/DL Total Protein 8.5 GM/DL Albumin 4.2 GM/DL Calcium Level 9.0 MG/DL Alkaline Phosphatase 82 U/L Aspartate Amino Transf (AST/SGOT) 20 U/L Alanine Aminotransferase (ALT/SGPT) 23 U/L Total Bilirubin 0.7 MG/DL Sodium Level 143 MEQ/L Potassium Level 3.9 MEQ/L Chloride Level 107 MEQ/L Carbon Dioxide Level 25.9 MEQ/L Anion Gap 10 MEQ/L Estimat Glomerular Filtration Rate 67 ML/MIN Thyroid Stimulating Hormone 3rd Gen 1.290 uIU/ML Ethyl Alcohol Level 194 MG/DL Urine Opiates Screen NEG Urine Barbiturates Screen NEG Urine Amphetamines Screen NEG Urine Benzodiazepines Screen NEG Urine Cocaine Screen POS Urine Cannabinoids Screen NEG MDM Medical Record Reviewed: Yes Supervised Visit with PHAN: Yes Narrative Course 37-year-old female previously medically cleared after being Smith act with suicidal ideation, was seen and evaluated by the psychiatrist and deemed psychiatrically stable for discharge at this time. Patient remains medically stable at time of discharge. Follow-up will be based on psychiatric note. Diagnosis Primary Impression: Adjustment disorder with mixed disturbance of emotions and conduct Additional Impression: Alcohol abuse with alcohol-induced mood disorder Referrals: [facility] (Out patient) Patient Instructions: General Instructions Disposition: DISCHARGE HOME Condition: Stable Pj Ford Nov 04, 2017 16:33
--- NOTE | 2017-11-04 16:33 | PD.PSY.CON ---
Provisional Diagnosis Admission Date [place] I. Adjustment disorder with mixed disturbances of emotion and conduct, alcohol abuse and intoxication, cocaine abuse History of Present Illness Service Psychiatry Consult Requested By EDMD Reason for Consult Smith act Primary Care Physician No Primary Care Physician JAYDON Davis is a [age] [place] female who comes here under Smith act by the [facility] dated 11/03/2017 at 4:18 PM the document reviewed stating more stated she wanted to end her life by stabbing herself. Patient seen screened in the ED urine toxicology positive for cocaine blood alcohol level of 194. At the present time patient sitting quietly in her room on J pod nurse Ellie present throughout the session. Patient states she was out partying doesn't remember what she said or did. She denies suicidality homicidality voices or visions. She minimizes her alcohol use denies any detox or rehabilitation or legal issues related to alcohol. She states this is the first time she has ever used cocaine. She also states that she is a doctor's appointment next week to get "baby" pills. Patient states there strong alcohol history in her family of origin and her parents. And that she was a "alcohol" baby. In any event at the present time patient does not meet Smith criteria will lift Smith act. Is okay by psych for patient to be discharge her medically clear and stable. The been no Rx by me. Patient be referred to NA/AA Review of Systems Constitutional: DENIES: Diaphoretic episodes, Fatigue, Fever, Weight gain, Weight loss, Chills, Dizziness, Change in appetite, Night Sweats Endocrine: DENIES: Abnorml menstrual pattern, Heat/cold intolerance, Polydipsia , Polyuria, Polyphagia Eyes: DENIES: Blurred vision, Diplopia, Eye inflammation, Eye pain, Vision loss , Photosensitivity, Double Vision Ears, nose, mouth, throat: DENIES: Tinnitus, Hearing loss, Vertigo, Nasal discharge, Oral lesions, Throat pain, Hoarseness, Ear Pain, Running Nose, Epistaxis, Sinus Pain, Toothache, Odynophagia Respiratory: DENIES: Apneas, Cough, Snoring, Wheezing, Hemoptysis, Sputum production, Shortness of breath Cardiovascular: DENIES: Chest pain, Palpitations, Syncope, Dyspnea on Exertion , PND, Lower Extremity Edema, Orthopnea, Claudication Gastrointestinal: DENIES: Abdominal pain, Black stools, Bloody stools, Constipation, Diarrhea, Nausea, Vomiting, Difficulty Swallowing, Anorexia Genitourinary: DENIES: Abnormal vaginal bleeding, Dysmenorrhea, Dyspareunia, Sexual dysfunction, Urinary frequency, Urinary incontinence, Urgency, Hematuria , Dysuria, Nocturia, Vaginal discharge Musculoskeletal: DENIES: Joint pain, Muscle aches, Stiffness, Joint Swelling, Back pain, Neck pain Integumentary: DENIES: Abnormal pigmentation, Pruritus, Rash, Nail changes, Breast masses, Breast skin changes, Nipple discharge Hematologic/lymphatic: DENIES: Bruising, Lymphadenopathy Immunologic/allergic: DENIES: Eczema, Urticaria Neurologic: DENIES: Abnormal gait, Headache, Localized weakness, Paresthesias, Seizures, Speech Problems, Tremor, Poor Balance Psychiatric: DENIES: Anxiety, Confusion, Mood changes, Depression, Hallucinations, Agitation, Suicidal Ideation, Homicidal Ideation, Delusions Past Family Social History Coded Allergies: Penicillins (Verified Allergy, Unknown, Anaphylaxis, 11/03/17) throat swells, can't breath Active Scripts Ranitidine (Zantac 150 Maximum Strength) 150 Mg Tab, 150 MG PO BID for 28 Days, #56 TAB Prov:Erik Cook MD 10/16/17 Family Psych History Patient vague about mental illness and family though she is acknowledges strong alcohol history with family origin on parents Social History Is a single stating she wants to get "baby pills" Patient's Strengths (min. 2) Patient verbal labile axis health care Physical Exam Patient medically cleared ED exam reviewed and agreed with Vital Signs Vital Signs Date Time Temp Pulse Resp B/P (MAP) Pulse Ox O2 Delivery O2 Flow Rate FiO2 11/04/17 16:10 82 18 118/74 (89) 11/04/17 06:51 99 Room Air 11/03/17 17:00 98.3 I/O 11/04/17 11/04/17 11/05/17 08:00 16:00 00:00 Intake Total 600 ml Balance 600 ml Lab Results Test 11/03/17 18:15 11/03/17 21:15 White Blood Count 7.1 TH/MM3 Red Blood Count 4.56 MIL/MM3 Hemoglobin 13.4 GM/DL Hematocrit 38.7 % Mean Corpuscular Volume 84.9 FL Mean Corpuscular Hemoglobin 29.3 PG Mean Corpuscular Hemoglobin Concent 34.5 % Red Cell Distribution Width 13.9 % Platelet Count 303 TH/MM3 Mean Platelet Volume 10.0 FL Neutrophils (%) (Auto) 43.5 % Lymphocytes (%) (Auto) 50.0 % Monocytes (%) (Auto) 5.0 % Eosinophils (%) (Auto) 1.1 % Basophils (%) (Auto) 0.4 % Neutrophils # (Auto) 3.1 TH/MM3 Lymphocytes # (Auto) 3.6 TH/MM3 Monocytes # (Auto) 0.4 TH/MM3 Eosinophils # (Auto) 0.1 TH/MM3 Basophils # (Auto) 0.0 TH/MM3 CBC Comment DIFF FINAL Differential Comment Blood Urea Nitrogen 7 MG/DL Creatinine 1.10 MG/DL Random Glucose 112 MG/DL Total Protein 8.5 GM/DL Albumin 4.2 GM/DL Calcium Level 9.0 MG/DL Alkaline Phosphatase 82 U/L Aspartate Amino Transf (AST/SGOT) 20 U/L Alanine Aminotransferase (ALT/SGPT) 23 U/L Total Bilirubin 0.7 MG/DL Sodium Level 143 MEQ/L Potassium Level 3.9 MEQ/L Chloride Level 107 MEQ/L Carbon Dioxide Level 25.9 MEQ/L Anion Gap 10 MEQ/L Estimat Glomerular Filtration Rate 67 ML/MIN Thyroid Stimulating Hormone 3rd Gen 1.290 uIU/ML Ethyl Alcohol Level 194 MG/DL Urine Opiates Screen NEG Urine Barbiturates Screen NEG Urine Amphetamines Screen NEG Urine Benzodiazepines Screen NEG Urine Cocaine Screen POS Urine Cannabinoids Screen NEG Mental Status Examination Appearance: Disheveled (somewhat) Consciousness: Alert Orientation: Person, Place, Date/Time, Situation Motor Activity: Normal gait Speech: Unremarkable Language: Adequate Fund of Knowledge: Adequate Attention and Concentration: Adequate Memory: Unremarkable Mood: Oppositional (mildly), Irritable Affect: Other (slight increase range and intensity) Thought Process & Associations: Linear Thought Content: Appropriate Hallucination Type: None Delusion Type: None Suicidal Ideation: No Suicidal Plan: No Suicidal Intention: No Homicidal Ideation: No Homicidal Plan: No Homicidal Intention: No Insight: Fair Judgment: Impulsive Assessment & Plan Problem List: (1) Adjustment disorder with mixed disturbance of emotions and conduct ICD Codes: F43.25 - Adjustment disorder with mixed disturbance of emotions and conduct (2) Alcohol abuse with intoxication ICD Codes: F10.129 - Alcohol abuse with intoxication, unspecified (3) Cocaine abuse ICD Codes: F14.10 - Cocaine abuse, uncomplicated Assessment & Plan Estimated LOS: days she does not meet Smith criteria will lift Smith act. As okay by psych for discharge when medically clear and stable. The been no Rx by me. Referred to NA/AA Discharge Planning See above Request HC Surrog/Guard Advoc?: No Apolinar Mak MD Nov 04, 2017 16:33
== END 2017-11-04 17:24 | disposition home or self-care (01) ==
LOC: NEDAMB 16:28 → NEPJ 11-04 17:24
DX: F43.25 Adjustment disorder with mixed disturbance of emotions and conduct (principal); F10.14 Alcohol abuse with alcohol-induced mood disorder; Z88.0 Allergy status to penicillin
CPT/HCPCS: 80053; 80307; 84443; 84703; 85025; 99284

== ENCOUNTER 2018-01-31 10:20 | Emergency (ER) | payer OTHER ==
[~2018-01-31] VITALS: Ht 165.1 cm; Wt 47.0 kg
[2018-01-31 10:23] VITALS: BP 125/81; PULSE 88; RESP 17; TEMP 99.2; O2SAT 97
[2018-01-31] MEDS ORDERED: SODIUM CHLORIDE 0.9% FLUSH 10 ML FLUSH IV FLUSH PRN (10:45)
--- NOTE | 2018-01-31 10:50 | PD ---
HPI Chief Complaint: Altered Mental Status Time Seen by Provider: 10:40 Travel History International Travel<30 days: No Contact w/Intl Traveler<30days: No Traveled to known affect area: No History of Present Illness HPI The patient was seen and examined in the presence of the nurse. This patient is an alcoholic patient has been here many times intoxicated before. She was found by a bystander lying on the [place] in the park and paramedics were called. She cannot provide any useful history or review of systems beyond saying that she was drinking alcohol and doing K2 and took an unknown pill. Denied suicidal ideation. PFSH Past Medical History Medical History: Unable to Obtain Asthma: Yes Blood Disorders: No Bipolar Disorder: Yes Cancer: No Cardiovascular Problems: Yes (heart murmur) Chemotherapy: No Diminished Hearing: No Endocrine: No Genitourinary: No Musculoskeletal: No Neurologic: No Psychiatric: No Reproductive: No Immunizations Current: Yes ?: Unknown Menopausal: No : 0 Past Surgical History Surgical History: Unable to Obtain Other Surgery: No Social History Alcohol Use: Yes Tobacco Use: Yes Substance Use: Yes ("marijuna, k2, pills") Allergies-Medications (Allergen,Severity, Reaction): Coded Allergies: Penicillins (Verified Allergy, Unknown, Anaphylaxis, 11/03/17) throat swells, can't breath Reported Meds & Prescriptions Reported Meds & Active Scripts Active Zantac 150 Maximum Strength (Ranitidine HCl) 150 Mg Tab 150 Mg PO BID 28 Days Review of Systems ROS Limitations: Clinical Condition, Intoxication, Altered Mental Status Physical Exam Narrative GENERAL: Thin cachectic well-developed patient who is lethargic . SKIN: Focused skin assessment reveals no rash and nodules. Skin is Warm and dry. HEAD: Atraumatic. Normocephalic. EYES: Pupils equal and round. No scleral icterus. No injection or drainage. ENT: No nasal bleeding or discharge. Mucous membranes pink and moist. NECK: Trachea midline. No JVD. CARDIOVASCULAR: Regular rate and rhythm. No murmur appreciated. RESPIRATORY: No accessory muscle use. Clear to auscultation. Breath sounds equal bilaterally. GASTROINTESTINAL: Abdomen soft, non-tender, nondistended. Hepatic and splenic margins not palpable. MUSCULOSKELETAL: No obvious deformities. No clubbing. No cyanosis. No edema. NEUROLOGICAL: Arouses to loud voice but drowsy and uncooperative. No obvious cranial nerve deficits. Motor and sensory exams difficult to assess given her limited participation. Mumbling and difficult to understand speech PSYCHIATRIC: Appropriate mood and affect; insight and judgment poor . Data Data Last Documented VS Vital Signs Date Time Temp Pulse Resp B/P (MAP) Pulse Ox O2 Delivery O2 Flow Rate FiO2 01/31/18 18:53 01/31/18 16:00 62 01/31/18 14:31 98.6 16 98 Room Air Orders Orders Ed Urine Pregnancytest Poc (01/31/18 10:38) Complete Blood Count With Diff (01/31/18 10:44) Comprehensive Metabolic Panel (01/31/18 10:44) Creatine Kinase (Cpk) (01/31/18 10:44) Iv Access Insert/Monitor (01/31/18 10:44) Oximetry (01/31/18 10:44) Sodium Chloride 0.9% Flush (Ns Flush) (01/31/18 10:45) Drug Screen, Random Urine (01/31/18 10:44) Alcohol (Ethanol) (01/31/18 10:44) Tylenol (Acetaminophen) (01/31/18 10:44) Salicylates (Aspirin) (01/31/18 10:44) Ct Brain W/O Iv Contrast(Rout) (01/31/18 ) CKMB (01/31/18 10:45) CKMB% (01/31/18 10:45) Sodium Chlor 0.9% 1000 Ml Inj (Ns 1000 M (01/31/18 11:45) Sodium Chlor 0.9% 1000 Ml Inj (Ns 1000 M (01/31/18 16:15) Labs Laboratory Tests Test 01/31/18 10:45 White Blood Count 5.9 TH/MM3 Red Blood Count 4.21 MIL/MM3 Hemoglobin 12.6 GM/DL Hematocrit 36.8 % Mean Corpuscular Volume 87.3 FL Mean Corpuscular Hemoglobin 29.9 PG Mean Corpuscular Hemoglobin Concent 34.2 % Red Cell Distribution Width 13.8 % Platelet Count 198 TH/MM3 Mean Platelet Volume 10.5 FL Neutrophils (%) (Auto) 40.8 % Lymphocytes (%) (Auto) 50.4 % Monocytes (%) (Auto) 8.1 % Eosinophils (%) (Auto) 0.2 % Basophils (%) (Auto) 0.5 % Neutrophils # (Auto) 2.4 TH/MM3 Lymphocytes # (Auto) 3.0 TH/MM3 Monocytes # (Auto) 0.5 TH/MM3 Eosinophils # (Auto) 0.0 TH/MM3 Basophils # (Auto) 0.0 TH/MM3 CBC Comment DIFF FINAL Differential Comment Blood Urea Nitrogen 8 MG/DL Creatinine 0.93 MG/DL Random Glucose 76 MG/DL Total Protein 8.4 GM/DL Albumin 4.3 GM/DL Calcium Level 8.7 MG/DL Alkaline Phosphatase 84 U/L Aspartate Amino Transf (AST/SGOT) 41 U/L Alanine Aminotransferase (ALT/SGPT) 33 U/L Total Bilirubin 0.9 MG/DL Sodium Level 144 MEQ/L Potassium Level 3.3 MEQ/L Chloride Level 110 MEQ/L Carbon Dioxide Level 25.6 MEQ/L Anion Gap 8 MEQ/L Estimat Glomerular Filtration Rate 81 ML/MIN Total Creatine Kinase 990 U/L Creatine Kinase MB 2.9 NG/ML Creatine Kinase MB % 0.3 % Salicylates Level LESS THAN 1.7 MG/DL Urine Opiates Screen NEG Acetaminophen Level LESS THAN 2.0 MCG/ML Urine Barbiturates Screen NEG Urine Amphetamines Screen NEG Urine Benzodiazepines Screen NEG Urine Cocaine Screen POS Urine Cannabinoids Screen NEG Ethyl Alcohol Level 265 MG/DL MDM Medical Decision Making Medical Screen Exam Complete: Yes Emergency Medical Condition: Yes Medical Record Reviewed: Yes Differential Diagnosis Alcohol intoxication, polysubstance abuse, drug overdose, intracranial hemorrhage Narrative Course I have reviewed the patient's electronic medical record. She has been here intoxicated many times before IV placed and labs sent Urine is negative Brain CT is normal Patient is intoxicated with alcohol and has cocaine on board. She required a lot of hours to sober up but at this point is alert and chatty and feels well and wants to go home CBC and metabolic profile normal Diagnosis Primary Impression: Alcohol abuse with intoxication Additional Impression: Polysubstance abuse Additional Instructions: The patient was advised to follow up with their physician and return if they worsen. Med/Other Pt SpecificInfo: Other Disposition: 01 DISCHARGE HOME Condition: Stable John Cheng MD Jan 31, 2018 10:49
[2018-01-31 10:53] VITALS: BP 114/76; PULSE 78; RESP 17; O2SAT 98
[2018-01-31 11:06] LABS: AUTOMATED NEUTROPHIL # 2.4 TH/MM3 (1.8-7.7); BASOPHIL % 0.5 % (0.0-2.0); EOSINOPHIL % 0.2 % (0.0-4.0); HEMATOCRIT 36.8 % (35.0-46.0); HEMOGLOBIN 12.6 GM/DL (11.6-15.3); LYMPH % 50.4 % (9.0-44.0); MEAN CELL VOLUME 87.3 FL (80.0-100.0); MEAN CORPUSCULAR HEMOGLOBIN 29.9 PG (27.0-34.0); MEAN CORPUSCULAR HGB CONC 34.2 % (32.0-36.0); MEAN PLATELET VOLUME 10.5 FL (7.0-11.0); MONO % 8.1 % (0.0-8.0); MONOCYTE # 0.5 TH/MM3 (0-0.9); NEUT % 40.8 % (16.0-70.0); PLATELET COUNT 198 TH/MM3 (150-450); RED BLOOD COUNT 4.21 MIL/MM3 (4.00-5.30); RED CELL DISTRIBUTION WIDTH 13.8 % (11.6-17.2); WHITE BLOOD COUNT 5.9 TH/MM3 (4.0-11.0)
--- NOTE | 2018-01-31 11:23 | RADRPT ---
EXAM DATE: 01/31/2018 11:18 AM EDT AGE/SEX: 37 years / Female INDICATIONS: Found unresponsive. CLINICAL DATA: This is the patient's initial encounter. Patient reports that signs and symptoms have been present for 1 day and indicates a pain score of Nonresponsive. MEDICAL/SURGICAL HISTORY: Asthma. Seizures, heart murmur. None. RADIATION DOSE: 56.77 CTDI (mGy) COMPARISON: [facility] [place] BRAIN [place], 01/06/2017. . TECHNIQUE: CT of the head without contrast. Using automated exposure control and adjustment of the mA and/or kV according to patient size, radiation dose was kept as low as reasonably achievable to ob tain optimal diagnostic quality images. FINDINGS: Cerebrum: The ventricles are normal for age. No evidence of midline shift, mass lesion, hemorrhage or acute infarction. No extraaxial fluid collections are seen. Posterior Fossa: The cerebellum and brainstem are intact. The 4th ventricle is midline. The cerebe llopontine angle is unremarkable. Extracranial: The visualized portion of the orbits is intact. Skull: The calvaria is intact. No evidence of skull fracture. CONCLUSION: Negative CT Head non contrast. Electronically signed by: Apolinar Farley MD 01/31/2018 11:22 AM EDT
[2018-01-31 11:34] LABS: ACETAMINOPHEN LESS THAN 2.0 MCG/ML (10.0-30.0); ALBUMIN 4.3 GM/DL (3.4-5.0); ALKALINE PHOSPHATASE 84 U/L (45-117); ALT (GPT) 33 U/L (10-53); AST (GOT) 41 U/L (15-37); BICARBONATE 25.6 MEQ/L (21.0-32.0); BLOOD UREA NITROGEN 8 MG/DL (7-18); CALCIUM 8.7 MG/DL (8.5-10.1); CHLORIDE 110 MEQ/L (98-107); CREATININE 0.93 MG/DL (0.50-1.00); GLOMERULAR FILTRATION RATE 81 ML/MIN (>89); GLUCOSE,RANDOM 76 MG/DL (74-106); SODIUM (NA) 144 MEQ/L (136-145); TOTAL BILIRUBIN ADULT 0.9 MG/DL (0.2-1.0); TOTAL PROTEIN 8.4 GM/DL (6.4-8.2)
[2018-01-31] MEDS ORDERED: SODIUM CHLOR 0.9% 1000 ML INJ 1,000 ML IV ONE ×2 (11:45→16:15)
[2018-01-31 14:31] VITALS: BP 103/54; PULSE 82; RESP 16; TEMP 98.6; O2SAT 98
[2018-01-31 16:00] VITALS: BP 96/62; PULSE 62
[2018-01-31 18:29] VITALS: BP 120/69
== END 2018-01-31 19:29 | disposition home or self-care (01) ==
LOC: NEPC 10:20
DX: F10.129 Alcohol abuse with intoxication, unspecified (principal); F19.10 Other psychoactive substance abuse, uncomplicated; F14.10 Cocaine abuse, uncomplicated; F31.9 Bipolar disorder, unspecified; J45.909 Unspecified asthma, uncomplicated; Y90.8 Blood alcohol level of 240 mg/100 ml or more; Z72.0 Tobacco use
CPT/HCPCS: 70450; 80053; 80307; 82550; 82552; 84703; 85025; 96360; 96361; 99284; J7030